=== PATIENT | male | born 1980 | race Caucasian/White ===

== ENCOUNTER 2016-10-13 03:45 | Emergency (ER) | payer OTHER ==
[2016-10-13] MEDS ORDERED: HYDROmorphone 2 MG/ML Syringe IVPUSH ONE (04:07)
[2016-10-13] MEDS ORDERED: Ondansetron 4 MG/2 ML SDV IVPUSH ONE (04:07)
--- NOTE | 2016-10-13 04:20 | EDM.PDOC ---
ED HPI GENERAL MEDICAL PROBLEM - General Chief Complaint: Back Pain or Injury Stated Complaint: BACK & LEG PAINS Time Seen by Provider: 10/13/16 03:56 - History of Present Illness INITIAL COMMENTS - FREE TEXT/NARRATIVE: HISTORY AND PHYSICAL: History of present illness: Patient is a 36-year-old white male presents today status post spinal fusion which she had L5-S1 fused this was done in [place] who presents now with back pain he states this is uncontrolled with his current pain medicine he has been urinating he's had no urinary retention or incontinence he denies any numbness or weakness he states this is strictly pain is been no fever chills nausea vomiting or other complaints he denies any new trauma although he did have a [address] Review of systems: As per history of present illness and below otherwise all systems reviewed and negative. Past medical history: As per history of present illness and as reviewed below otherwise noncontributory. Surgical history: As per history of present illness and as reviewed below otherwise noncontributory. Social history: No reported history of drug or alcohol abuse. Family history: As per history of present illness and as reviewed below otherwise noncontributory. Physical exam: HEENT: Atraumatic, normocephalic, pupils reactive, negative for conjunctival pallor or scleral icterus, mucous membranes moist, throat clear, neck supple, nontender, trachea midline. Lungs: Clear to auscultation, breath sounds equal bilaterally, chest nontender. Heart: S1S2, regular, negative for clicks, rubs, or JVD. Abdomen: Soft, nondistended, nontender. Negative for masses or hepatosplenomegaly. Negative for costovertebral tenderness. Pelvis: Stable nontender. Genitourinary: Deferred. Rectal: No perineal paresthesia rectal tone unremarkable. Extremities: Atraumatic, negative for cords or calf pain. Neurovascular unremarkable. Neuro: Awake, alert, oriented. Cranial nerves II through XII unremarkable. Cerebellum unremarkable. Motor and sensory unremarkable throughout. Exam nonfocal.surgical wound is without erythema discharge fluctuance warmth or induration Diagnostics: CBC CMP CT LS SPINE Therapeutics: DILAUDID 1 MG IV ZOFRAN 4 MG IV Impression: 1 S/P SPINAL FUSION WITH POST OPERATIVE PAIN #2 postoperative hematoma with cord compression per CT Definitive disposition and diagnosis as appropriate pending reevaluation and review of above. lower back Pain Score (Numeric/FACES): 10 - Related Data Allergies Allergy/AdvReac Type Severity Reaction Status Date / Time No Known Allergies Allergy Verified 05/06/15 09:43 Home Meds: Home Meds Acetaminophen 500 mg PO Q6HR 10/13/16 [History] Cetirizine [ZyrTEC] 10 mg PO DAILY 10/13/16 [History] Cholecalciferol (Vitamin D3) [Vitamin D] 5,000 unit PO DAILY 10/13/16 [History] Colestipol HCl [Colestipol] 2 gm PO DAILY 10/13/16 [History] Cyclobenzaprine HCl 10 mg PO Q8HR 10/13/16 [History] Docusate Sodium/Sennosides [Senna Plus] 1 tab PO DAILY 10/13/16 [History] Fish Oil/[place]-3 Fatty Acids [Fish Oil 1,000 MG] 10/13/16 [History] Polyethylene Glycol 3350 17 gm PO ASDIRECTED 10/13/16 [History] oxyCODONE HCl [Oxycodone HCl] 5 mg PO Q4HR 10/13/16 [History] Past Medical History HEENT History: Reports: None, Other (See Below) Other HEENT History: Lee's Esophagus Cardiovascular History: Reports: None Respiratory History: Reports: None Gastrointestinal History: Reports: GERD, Hiatal Hernia Genitourinary History: Reports: None Musculoskeletal History: Reports: None Other Musculoskeletal History: lower back fusion Neurological History: Reports: None Psychiatric History: Reports: None Endocrine/Metabolic History: Reports: None Hematologic History: Reports: None Immunologic History: Reports: None Oncologic (Cancer) History: Reports: None Dermatologic History: Reports: None - Infectious Disease History Infectious Disease History: Reports: Chicken Pox - Past Surgical History Head Surgeries/Procedures: Reports: None GI Surgical History: Reports: Appendectomy, Cholecystectomy, Esophageal Dilatation, Bonnie Fundoplication Social & Family History - Family History Family Medical History: Noncontributory - Tobacco Use Smoking Status *Q: Never Smoker Used Tobacco, but Quit: Yes Month Tobacco Last Used: 04/2008 Second Hand Smoke Exposure: No - Alcohol Use Days Per Week of Alcohol Use: 0 - Recreational Drug Use Recreational Drug Use: No - Living Situation & Occupation Living situation: Reports: Occupation: Employed ED ROS GENERAL - Review of Systems Review Of Systems: ROS reveals no pertinent complaints other than HPI. ED EXAM, GENERAL - Physical Exam Exam: See Below (See dictation) Course - Vital Signs Text/Narrative:: Case discussed with family including CT findings family requests return to neurosurgeon in [facility] discussed other options including [facility] family declines discussed case with Dr. Garcia neurosurgery who except patient will be transferred via air medical patient remains without any motor or sensory deficits or other neurological findings Last Recorded V/S: Last Vital Signs Temp 37.1 C 10/13/16 05:33 Pulse 118 H 10/13/16 05:33 Resp 20 10/13/16 05:33 BP 132/79 10/13/16 05:33 Pulse Ox 98 10/13/16 05:33 - Orders/Labs/Meds Orders: Active Orders 24 hr Category Date Time Status Lumbar Spine 2 or 3V [CR] Stat Exams 10/13/16 04:01 Taken Lumbar Spine wo Cont [CT] Stat Exams 10/13/16 04:31 Taken Labs: Laboratory Tests 10/13/16 10/13/16 Range/Units 04:20 04:20 WBC 12.03 H (4.0-11.0) K/uL RBC 4.28 L (4.50-5.90) M/uL Hgb 12.9 L (13.0-17.0) g/dL Hct 37.2 L (38.0-50.0) % MCV 86.9 (80.0-98.0) fL MCH 30.1 (27.0-32.0) pg MCHC 34.7 (31.0-37.0) g/dL RDW Std Deviation 38.4 (28.0-62.0) fl RDW Coeff of Aguilar 12 (11.0-15.0) % Plt Count 259 (150-400) K/uL MPV 9.80 (7.40-12.00) fL Add Manual Diff YES Neutrophils % (Manual) 74 (48.0-80.0) % Band Neutrophils % 3 % Lymphocytes % (Manual) 12 L (16.0-40.0) % Monocytes % (Manual) 10 (0.0-15.0) % Eosinophils % (Manual) 1 (0.0-7.0) % Nucleated RBC % 0.0 /100WBC Absolute Seg Neuts 8.9 Band Neutrophils # 0.4 Lymphocytes # (Manual) 1.4 Monocytes # (Manual) 1.2 Eosinophils # (Manual) 0.1 Nucleated RBCs # 0 K/uL Sodium 135 L (136-146) mmol/L Potassium 3.7 (3.5-5.1) mmol/L Chloride 102 (98-110) mmol/L Carbon Dioxide 21 (21-31) mmol/L BUN 19 (6.0-23.0) mg/dL Creatinine 1.0 (0.6-1.5) mg/dL Est Cr Clr Drug Dosing 99.75 mL/min Estimated GFR (MDRD) > 60.0 ml/min Glucose 102 (60-110) mg/dL Calcium 8.5 L (8.8-10.8) mg/dL Total Bilirubin 1.0 (0.1-1.5) mg/dL AST 72 H (5-40) IU/L ALT 88 H (8-54) IU/L Alkaline Phosphatase 59 (40-150) Total Protein 6.9 (6.0-8.0) g/dL Albumin 4.2 (3.5-5.0) g/dL Globulin 2.7 (2.0-3.5) g/dL Albumin/Globulin Ratio 1.6 (1.3-2.8) Meds: Medications Discontinued Medications Generic Name Dose Route Start Last Admin Trade Name Becky PRN Reason Stop Dose Admin Bacitracin 1 dose 10/13/16 04:59 10/13/16 05:04 Bacitracin Oint 1 Gm TOP 10/13/16 05:00 1 dose ONETIME ONE Administration Bacitracin Confirm 10/13/16 05:00 10/13/16 05:04 Bacitracin Oint 1 Gm Administered 10/13/16 05:01 Not Given Dose 2 dose .ROUTE .STK-MED ONE Hydromorphone HCl 1 mg 10/13/16 04:07 10/13/16 04:25 Dilaudid IVPUSH 10/13/16 04:08 1 mg ONETIME ONE Administration Hydromorphone HCl 1 mg 10/13/16 05:42 10/13/16 05:50 Dilaudid IVPUSH 10/13/16 05:43 1 mg ONETIME ONE Administration Methylprednisolone Sodium Succinate 125 mg 10/13/16 05:41 10/13/16 05:46 Solu-Medrol IVPUSH 10/13/16 05:42 125 mg ONETIME ONE Administration Ondansetron HCl 4 mg 10/13/16 04:07 10/13/16 04:20 Zofran IVPUSH 10/13/16 04:08 4 mg ONETIME ONE Administration Departure - Departure Time of Disposition: 06:16 Disposition: DC/Tfer to Other 70 Condition: Good Clinical Impression: Postoperative hematoma - Discharge Information Forms: ED Department Discharge - My Orders Last 24 Hours: My Active Orders 10/13/16 04:01 Lumbar Spine 2 or 3V [CR] Stat 10/13/16 04:31 Lumbar Spine wo Cont [CT] Stat - Assessment/Plan Last 24 Hours: My Active Orders 10/13/16 04:01 Lumbar Spine 2 or 3V [CR] Stat 10/13/16 04:31 Lumbar Spine wo Cont [CT] Stat
[2016-10-13] MEDS ORDERED: Bacitracin Oint 1 GM U/D Packet TOP ONE (04:59)
[2016-10-13] MEDS ORDERED: Bacitracin Oint 1 GM U/D Packet ONE (05:00)
[2016-10-13 05:16] LABS: CHLORIDE,CL 102 mmol/L (98-110); SODIUM,NA 135 mmol/L (136-146)
[2016-10-13] MEDS ORDERED: methylPREDNISolone Sodium Succinate 125 MG/2 ML SDV IVPUSH ONE (05:41)
[2016-10-13] MEDS ORDERED: HYDROmorphone 1 MG/ML Syringe IVPUSH ONE (05:42)
[2016-10-13 06:52] VITALS: BP 128/65
--- NOTE | 2016-10-14 12:07 | CR ---
EXAM DATE: 10/13/16 PATIENT'S AGE: 36 Patient: PALAK MAYBERRY Facility: [place], [place] Site . Site : 1980 Study: XRay Spine Lumbar [id number]/25/2017 4:20:45 AM Ordering Physician: Matti Harrington Final Report: HISTORY: Severe lower back pain. Lumbar fusion in the past week. Technique: Lumbar spine 3 views. Comparison: None. Findings: Counting reference: Lumbosacral junction. Five lumbar type vertebral bodies. Post fusion at L5-S1 1 with bilateral pedicle screws and rods. Intervertebral spacer in the L5-S1 disc space. Hardware appears intact. Vertebral body heights are maintained. Alignment is maintained. Mild disc space narrowing at L4-5. Postoperative soft tissue gas dorsally. Impression: Post L5-S1 fusion. No acute findings. Dictated by Hank Murdock MD @ Oct 13 2016 5:14AM (Electronic Signature) Report Signed by Proxy. LUZ
--- NOTE | 2016-10-14 12:09 | CT ---
EXAM DATE: 10/13/16 PATIENT'S AGE: 36 Patient: PALAK MAYBERRY Facility: [place], [place] Site . Site : 1980 Study: CT Spine Lumbar WO CONT [id number]/25/2017 5:00:05 AM Ordering Physician: Matti Harrington Final Report: Indication: History of spine surgery. Persistent back pain. Technique: Noncontrast CT of the lumbar spine was acquired in the usual fashion. No comparisons. Findings: Postoperative change about the anterior/posterior fusion endeavor involving the L5-S1 levels. There is soft tissue density material within the laminectomy defect likely representing presence of blood products such as a hematoma. This does result in narrowing of the central canal but is difficult to ascertain the degree. Endplate osteophyte and facet arthropathy results in moderate bilateral L5-S1 foraminal narrowing. Extensive gas is seen within the epidural space extending to the L3-4 level may represent postoperative change. Gas within the subcutaneous soft tissues of the lumbar spine likely representing postoperative change annual. Bony donor site from the right iliac crest. Remainder of the lumbar spine demonstrates normal overall stature and alignment. Impression: 1. Postoperative changes of anterior/posterior L5-S1 fusion. 2. Soft tissue density material dorsally at the L5-S1 laminectomy defect likely representing blood products. This does appear to narrow the central canal but is difficult to ascertain the degree of narrowing. 3. Moderate bilateral L5-S1 foraminal narrowing. 4. Gas within the epidural space of the lower lumbar spine as outlined above that may be postoperative in nature. Please note that all CT scans at this facility use dose modulation, iterative reconstruction, and/or weight-based dosing when appropriate to reduce radiation dose to as low as reasonably achievable. Dictated by Ricardo Irby MD @ Oct 13 2016 9:26AM (Electronic Signature) Report Signed by Proxy. LUZ
== END 2016-10-13 06:38 | disposition other institution (70) ==
LOC: MW.ED 03:45
DX: M96.840 Postprocedural hematoma of a musculoskeletal structure following a musculoskeletal system procedure (principal); K21.9 Gastro-esophageal reflux disease without esophagitis; Z79.899 Other long term (current) drug therapy; Z90.49 Acquired absence of other specified parts of digestive tract; Z98.890 Other specified postprocedural states
CPT/HCPCS: 72100; 72131; 80053; 85025; 96374; 96375; 96376; 99285; J1170; J2405; J2930; 99284

== ENCOUNTER 2017-03-25 16:50 | Emergency (ER) | payer OTHER ==
[2017-03-25] MEDS ORDERED: Sodium Chloride 0.9% 1,000 ML IV ONE (17:20)
[2017-03-25] MEDS ORDERED: fentaNYL 100 MCG/2 ML SDV IVPUSH ONE (17:23)
--- NOTE | 2017-03-25 17:25 | EDM.PDOC ---
ED HPI GENERAL MEDICAL PROBLEM - General Chief Complaint: Lower Extremity Injury/Pain Stated Complaint: PT HURT LT LEG Time Seen by Provider: 03/25/17 17:04 Source of Information: Reports: Patient History Limitations: Reports: No Limitations - History of Present Illness INITIAL COMMENTS - FREE TEXT/NARRATIVE: Presents reporting sudden onset of his left knee "giving away", falling forward onto his left knee and then his body "flopping backward". The patient reports the following history: Underwent L5-S1 PLIF with instrumentation on 10/10/[address] Garcia. He had a postop hematoma and evacuation which complicated his recovery. He continued to have some postoperative pain which was not controlled with oral opioids and muscle relaxants. Therefore he was sent to pain management. About one month ago he underwent epidural steroid injection with good results. Recently however his pain returned and on 03/19 he underwent trigger point injections in the quadratus lumborum, L5-S1 multifidus muscles. Now, the patient is complaining of severe spasmodic pain in the low back around the surgical site and in the left flank. His sweating and cannot get comfortable in any position. He does have baseline tingling and numbness in his legs bilateral. No loss of bowel or bladder function and good anal sensation and squeeze. Lower Back Pain Score (Numeric/FACES): 8 - Related Data Allergies Allergy/AdvReac Type Severity Reaction Status Date / Time No Known Allergies Allergy Verified 03/25/17 16:57 Home Meds: Home Meds Acetaminophen 500 mg PO Q6HR 10/13/16 [History] Cetirizine [ZyrTEC] 10 mg PO DAILY 10/13/16 [History] Cholecalciferol (Vitamin D3) [Vitamin D] 5,000 unit PO DAILY 10/13/16 [History] Colestipol HCl [Colestipol] 2 gm PO DAILY 10/13/16 [History] Cyclobenzaprine HCl 10 mg PO Q8HR 10/13/16 [History] Docusate Sodium/Sennosides [Senna Plus] 1 tab PO DAILY 10/13/16 [History] Fish Oil/[place]-3 Fatty Acids [Fish Oil 1,000 MG] 1 gm PO DAILY 10/13/16 [History ] Polyethylene Glycol 3350 17 gm PO ASDIRECTED 10/13/16 [History] oxyCODONE HCl [Oxycodone HCl] 5 mg PO Q4HR 10/13/16 [History] Ketamine [Ketalar] 200 mg DEVONTE DAILY PRN 03/25/17 [History] Past Medical History HEENT History: Reports: None, Other (See Below) Other HEENT History: Lee's Esophagus Cardiovascular History: Reports: None Respiratory History: Reports: None Gastrointestinal History: Reports: GERD, Hiatal Hernia Genitourinary History: Reports: None Musculoskeletal History: Reports: None Other Musculoskeletal History: lower back fusion Neurological History: Reports: None Psychiatric History: Reports: None Endocrine/Metabolic History: Reports: None Hematologic History: Reports: None Immunologic History: Reports: None Oncologic (Cancer) History: Reports: None Dermatologic History: Reports: None - Infectious Disease History Infectious Disease History: Reports: Chicken Pox - Past Surgical History Head Surgeries/Procedures: Reports: None GI Surgical History: Reports: Appendectomy, Cholecystectomy, Esophageal Dilatation, Bonnie Fundoplication Social & Family History - Family History Family Medical History: Noncontributory - Tobacco Use Smoking Status *Q: Never Smoker Used Tobacco, but Quit: Yes Month Tobacco Last Used: 04/2008 Second Hand Smoke Exposure: No - Alcohol Use Days Per Week of Alcohol Use: 0 - Recreational Drug Use Recreational Drug Use: No - Living Situation & Occupation Living situation: Reports: Occupation: Employed Review of Systems - Review of Systems Review Of Systems: ROS reveals no pertinent complaints other than HPI. Neurological: Reports: Other (Tingling and numbness, mild in legs down to her feet which patient states is his baseline) ED EXAM, GENERAL - Physical Exam Exam: See Below Exam Limited By: No Limitations General Appearance: Moderate Distress (due to pain low back and flank) Ears: Normal External Exam Nose: Normal Inspection Throat/Mouth: Normal Inspection Head: Atraumatic, Normocephalic Neck: Normal Inspection Respiratory/Chest: No Respiratory Distress, Lungs Clear, Normal Breath Sounds Cardiovascular: Normal Peripheral Pulses, Regular Rate, Rhythm, No Edema, No Murmur Peripheral Pulses: 2+: Posterior Tibial (L), Posterior Tibial (R) GI/Abdominal: Normal Bowel Sounds, Soft Back Exam: Normal Inspection, Muscle Spasm (around surgical site and left flank) Extremities: Normal Inspection, Normal Range of Motion Neurological: Alert, Oriented, No Motor/Sensory Deficits Psychiatric: Tearful Course - Vital Signs Last Recorded V/S: Last Vital Signs Temp 37.2 C 03/25/17 17:00 Pulse 88 03/25/17 20:33 Resp 18 03/25/17 20:33 BP 121/77 03/25/17 20:33 Pulse Ox 98 03/25/17 20:33 - Orders/Labs/Meds Orders: Active Orders 24 hr Category Date Time Status Lumbar Spine wo Cont [CT] Stat Exams 03/25/17 18:32 Taken CMP [COMPREHENSIVE METABOLIC PN,CMP] [CHEM] Stat Lab 03/25/17 21:00 Ordered Sodium Chloride 0.9% [Normal Saline] 1,000 ml Med 03/25/17 17:20 Active IV STAT Medication Orders Sodium Chloride (Normal Saline) 1,000 mls @ 150 mls/hr IV STAT ONE Stop: 03/25/17 23:59 Last Admin: 03/25/17 17:44 Dose: 150 mls/hr Labs: Laboratory Tests 03/25/17 Range/Units 21:20 WBC 9.97 (4.0-11.0) K/uL RBC 4.91 (4.50-5.90) M/uL Hgb 15.1 (13.0-17.0) g/dL Hct 42.7 (38.0-50.0) % MCV 87.0 (80.0-98.0) fL MCH 30.8 (27.0-32.0) pg MCHC 35.4 (31.0-37.0) g/dL RDW Std Deviation 39.4 (28.0-62.0) fl RDW Coeff of Aguilar 12 (11.0-15.0) % Plt Count 271 (150-400) K/uL MPV 9.70 (7.40-12.00) fL Neut % (Auto) 63.1 (48.0-80.0) % Lymph % (Auto) 29.5 (16.0-40.0) % [place] % (Auto) 5.4 (0.0-15.0) % Eos % (Auto) 1.5 (0.0-7.0) % Baso % (Auto) 0.5 (0.0-1.5) % Neut # (Auto) 6.3 H (1.4-5.7) K/uL Lymph # (Auto) 2.9 H (0.6-2.4) K/uL [place] # (Auto) 0.5 (0.0-0.8) K/uL Eos # (Auto) 0.2 (0.0-0.7) K/uL Baso # (Auto) 0.1 (0.0-0.1) K/uL Nucleated RBC % 0.0 /100WBC Nucleated RBCs # 0 K/uL Meds: Medications Generic Name Dose Route Start Last Admin Trade Name Freq PRN Reason Stop Dose Admin Sodium Chloride 1,000 mls @ 150 mls/hr 03/25/17 17:20 03/25/17 17:44 Normal Saline IV 03/25/17 23:59 150 mls/hr STAT ONE Administration Discontinued Medications Generic Name Dose Route Start Last Admin Trade Name Freq PRN Reason Stop Dose Admin Cyclobenzaprine HCl 10 mg 03/25/17 21:08 03/25/17 21:18 Flexeril PO 03/25/17 21:09 10 mg ONETIME ONE Administration Diazepam 5 mg 03/25/17 17:21 03/25/17 17:49 Valium IVPUSH 03/25/17 17:22 5 mg ONETIME ONE Administration Diazepam 5 mg 03/25/17 20:11 03/25/17 20:31 Valium IVPUSH 03/25/17 20:12 5 mg ONETIME ONE Administration Fentanyl 50 mcg 03/25/17 17:23 03/25/17 17:44 Sublimaze IVPUSH 03/25/17 17:24 50 mcg ONETIME ONE Administration - Re-Assessments/Exams Free Text/Narrative Re-Assessment/Exam: 03/25/17 21:54 After 2 doses of 5 mg IV diazepam and 50 mics of fentanyl IV along with 10 mg of by mouth cyclobenzaprine, the patient states that he is over 50% better. He was given the option of being transferred to [place] for MRI, having his drive him to [place] for an MRI or following up with Dr. Montero in the morning as previously scheduled for definitive management. The CT scan did not adequately assess the patient's spine and intracanal soft tissue. The patient stated that he absolutely did not want to go to [facility] and that he felt he was feeling well enough to go home for the night and follow-up with Dr. Montero in the morning. Free Text/Narrative Re-Assessment/Exam: 03/25/17 22:03 Patient got up by side of bed, ambulated, dressed self. Feels much improved. Departure - Departure Time of Disposition: 22:00 Disposition: Home, Self-Care 01 Condition: Good Clinical Impression: Back muscle spasm - Discharge Information Referrals: PCP,None [Primary Care Provider] - [facility] [Outside] [facility] [Outside] Forms: ED Department Discharge Additional Instructions: 1. Ativan 1-2 tabs every 8 hours as needed for back spasm or 2. Flexeril 10mg every 8 hours as needed for back spasm 3. Follow up with Dr. Montero in the am as previously scheduled. 4. Warm or cool packs to low back whichever feels best. - My Orders Last 24 Hours: My Active Orders 03/25/17 17:20 Sodium Chloride 0.9% [Normal Saline] 1,000 ml IV STAT 03/25/17 18:32 Lumbar Spine wo Cont [CT] Stat 03/25/17 21:00 CMP [COMPREHENSIVE METABOLIC PN,CMP] [CHEM] Stat - Assessment/Plan Last 24 Hours: My Active Orders 03/25/17 17:20 Sodium Chloride 0.9% [Normal Saline] 1,000 ml IV STAT 03/25/17 18:32 Lumbar Spine wo Cont [CT] Stat 03/25/17 21:00 CMP [COMPREHENSIVE METABOLIC PN,CMP] [CHEM] Stat
[2017-03-25] MEDS ORDERED: Cyclobenzaprine 10 MG Tab PO ONE (21:08)
[2017-03-25 21:49] LABS: CHLORIDE,CL 110 mmol/L (98-110); SODIUM,NA 140 mmol/L (136-146)
[2017-03-25 22:39] VITALS: BP 123/72
--- NOTE | 2017-03-26 13:02 | CT ---
EXAM DATE: 03/25/17 PATIENT'S AGE: 37 Patient: LUIS MAYBERRY Facility: [place], [place] Site . Site : 1980 Study: CT Spine Lumbar WO CONT [id number] 7:04:09 PM Ordering Physician: Doctor Pat Final Report: INDICATION: Lower back pain radiating down right leg, right leg gave out yesterday. History of spinal fusion in September with complications. Technique: Multiaxial CT images of the lumbar spine were obtained without contrast. Coronal and sagittal reformats. Comparison: CT lumbar spine dated 10/13/2016. Findings: Redemonstrated are postsurgical changes consistent with posterior lumbar interbody fusion, laminectomy, and intervertebral cage placement at L5-S1. No CT evidence of hardware complication. Lumbar lordosis is preserved. There is similar disc height loss most prominent at L5-S1. There is possible fusion of the left facet joint at L5-S1. Vertebral body heights are maintained. No evidence of fracture, dislocation or subluxation. Mild bilateral neural foramen narrowing at L5-S1 is improved. There is a bony donor site from the right iliac crest. There is a disc bulge at L3-4 without significant spinal canal stenosis. The thecal sac and paraspinal soft tissues at L4-5 and L5-S1 are poorly visualized due to streak artifact from metallic hardware. No gas collections to suggest abscess. Impression : 1. Postsurgical changes are consistent with posterior lumbar interbody fusion, laminectomy, and intervertebral cage placement at L5-S1. Probable effusion of the left L4-5 facet. There is improved stenosis of the bilateral L5-S1 neural foramen. 2. The thecal sac and paraspinal soft tissues at L4-5 and L5-S1 are poorly visualized due to streak artifact from metallic hardware. No gas collections to suggest abscess. Please note that all CT scans at this facility use dose modulation, iterative reconstruction, and/or weight-based dosing when appropriate to reduce radiation dose to as low as reasonably achievable. Dictated by Luis lEder MD @ Mar 26 2017 8:24AM (Electronic Signature) Report Signed by Proxy. LUZ
== END 2017-03-25 22:36 | disposition home or self-care (01) ==
LOC: MW.ED 16:50
DX: M62.830 Muscle spasm of back (principal); Z79.899 Other long term (current) drug therapy
CPT/HCPCS: 36415; 72131; 80053; 85025; 96361; 96374; 96375; 96376; 99284; A9270; J3010; J3360; J7040

== ENCOUNTER 2018-01-22 11:37 | Day surgery (SDC) | payer OTHER ==
[2018-01-22] MEDS ORDERED: Ropivacaine 0.5% 5 MG/ML 30 ML SDV ONE (11:53)
[2018-01-22] MEDS ORDERED: Lidocaine 2% 5 ML SDV ONE (11:53)
[2018-01-22] MEDS ORDERED: Lidocaine 1% 0 ML ONE (11:53)
[2018-01-22] MEDS ORDERED: Betamethasone Acetate/Betamethasone Sod Phosphate 30 MG/5 ML MDV ONE (11:53)
[2018-01-22] MEDS ORDERED: Iopamidol 408 MG/ML 50 ML SDV ONE (11:54)
--- NOTE | 2018-01-22 15:21 | OR ---
SURGEON: Radha Gilman D.O. DATE OF PROCEDURE: 01/22/2018 OR STAFF PRESENT: 1. Jaylene Abrams RN. 2. Nohemy Ramos RN. 3. RT Wagner. WOUND CLASS: I. PREOPERATIVE DIAGNOSES: 1. Failed back surgery syndrome. 2. Lumbar radiculopathy. 3. Chronic neuropathic pain. POSTOPERATIVE DIAGNOSES: 1. Failed back surgery syndrome. 2. Lumbar radiculopathy. 3. Chronic neuropathic pain. PROCEDURES PERFORMED: 1. Caudal epidural steroid injection. 2. Fluoroscopic guidance for needle placement. 3. Local with oral valium for sedation. SCREENING QUESTIONS: The patient answered "no" to all of the following questions: 1. Are you allergic to latex? 2. Do you have a bleeding disorder? 3. Do you have any current local or systemic infections? 4. Are you taking any anti-inflammatories or blood thinners? 5. Do you have any joint replacements, heart valve replacements, or a pacemaker? DESCRIPTION OF PROCEDURE: The patient had the procedure thoroughly explained including all possible risks, benefits and alternatives. Consent was signed in my clinic indicating understanding and willingness to proceed. The patient presented to [facility] [place] and was escorted to the dressing room to disrobe and change into a hospital gown. Preoperative vital signs were taken and stable. The patient reported that Valium was taken prior to the procedure. The patient was brought back to the procedure room and placed in the prone position on the procedure room table. A pillow was placed under the hips in order to flatten the lumbar lordosis. The back was prepped with ChloraPrep and sterilely draped. All personnel in the operating room were dressed in appropriate attire including surgical scrubs, head and shoe covers. This was to ensure sterility while in the treatment room. During the time fluoroscopy was in use, all personnel in the operating room wore lead gillette with thyroid collars. Sterile technique was used throughout the procedure. The patient was awake and conversant throughout the procedure. There was no evidence of infection at the site of needle insertion. Skeletal landmarks were identified under fluoroscopy for the lumbar epidural. Skin was anesthetized with 2% lidocaine with a sterile 27-gauge 1.5 inch needle. Then, a 20-gauge Tuohy epidural needle was placed in the epidural space with loss of resistance technique under fluoroscopic guidance. No heme, cerebrospinal fluid, or paresthesias were noted. Isovue-200 contrast dye was injected in 0.2 cubic centimeter increments and seen to outline the epidural space in both AP and lateral views. There was no intravascular flow pattern observed under live fluoroscopy. Then, 12 milligrams of Celestone was slowly injected after negative aspiration. The patient tolerated the procedure well. Vital signs were stable during and after the procedure. The staff escorted the patient to the recovery area and the patient was released in stable condition after a brief stay in the recovery room monitored by the nurse. The patient was given both oral and written discharge and follow up instructions with recommendation to follow up given for 2-3 weeks. The patient voiced understanding including understanding of those signs and symptoms that would require emergency care. The patient knows how to contact the office if there are any additional problems or questions in the meantime. PREOPERATIVE PAIN: 4 to 5/10. POSTOPERATIVE PAIN: 4 to 5/10. FOLLOWUP: Follow up in the Pain Clinic in 3 weeks. EYAL / FRANCISCO /[id number]
== END 2018-01-22 13:35 | disposition home or self-care (01) ==
LOC: MW.SDS 11:37
PROVIDERS: ATTEND Anesthesiology
DX: G89.4 Chronic pain syndrome (principal); M54.5 Low back pain; M54.17 Radiculopathy, lumbosacral region; M96.1 Postlaminectomy syndrome, not elsewhere classified; M79.18 Myalgia, other site; Z87.891 Personal history of nicotine dependence; Z98.1 Arthrodesis status
CPT/HCPCS: 62323; J0702; J2795; Q9966

== ENCOUNTER 2019-03-21 07:41 | Emergency (ER) | payer OTHER ==
[2019-03-21] MEDS ORDERED: Pantoprazole 80 MG in Sodium Chloride 0.9% 10 ML IV ONE (07:52)
[2019-03-21] MEDS ORDERED: Ketorolac 30 MG/ML SDV IVPUSH ONE (07:52)
[2019-03-21] MEDS ORDERED: Water For Injection, Sterile 50 ML SDV INJECT ONE (07:53)
[2019-03-21] MEDS ORDERED: Alum Hydrox/Mag Hydrox/Simeth 15 ML, Metoclopramide 5 MG, Lidocaine 2% 5 ML PO ONE ×3 (07:54)
--- NOTE | 2019-03-21 07:56 | EDM.PDOC ---
ED HPI GENERAL MEDICAL PROBLEM - General Chief Complaint: Chest Pain Stated Complaint: SOB Time Seen by Provider: 03/21/19 07:42 - History of Present Illness INITIAL COMMENTS - FREE TEXT/NARRATIVE: HISTORY AND PHYSICAL: History of present illness: Patient 39-year-old white male presents with a concern of esophageal spasm patient's head prior episodes and has had a Bonnie fundoplication. He denies trauma or other concern he states his lips of the past required IV medication. Review of systems: As per history of present illness and below otherwise all systems reviewed and negative. Past medical history: As per history of present illness and as reviewed below otherwise noncontributory. Surgical history: As per history of present illness and as reviewed below otherwise noncontributory. Social history: No reported history of drug or alcohol abuse. Family history: As per history of present illness and as reviewed below otherwise noncontributory. Physical exam: HEENT: Atraumatic, normocephalic, pupils reactive, negative for conjunctival pallor or scleral icterus, mucous membranes moist, throat clear, neck supple, nontender, trachea midline. Lungs: Clear to auscultation, breath sounds equal bilaterally, chest nontender. Heart: S1S2, regular, negative for clicks, rubs, or JVD. Abdomen: Soft, nondistended, nontender. Negative for masses or hepatosplenomegaly. Negative for costovertebral tenderness. Pelvis: Stable nontender. Genitourinary: Deferred. Rectal: Deferred. Extremities: Atraumatic, negative for cords or calf pain. Neurovascular unremarkable. Neuro: Awake, alert, oriented. Cranial nerves II through XII unremarkable. Cerebellum unremarkable. Motor and sensory unremarkable throughout. Exam nonfocal. Diagnostics: Chest x-ray EKG Therapeutics: Toradol 30 mg IV Protonix 80 mg IV GI cocktail Impression: #1 epigastric abdominal pain #2 history of esophagitis #3 history of Bonnie fundoplication Definitive disposition and diagnosis as appropriate pending reevaluation and review of above. Chest Pain Pain Score (Numeric/FACES): 8 - Related Data Allergies Allergy/AdvReac Type Severity Reaction Status Date / Time No Known Allergies Allergy Verified 03/21/19 07:46 Home Meds: Home Meds Acetaminophen 500 mg PO Q6HR 10/13/16 [History] Cetirizine [ZyrTEC] 10 mg PO DAILY 10/13/16 [History] Cholecalciferol (Vitamin D3) [Vitamin D] 5,000 unit PO DAILY 10/13/16 [History] Colestipol HCl [Colestipol] 2 gm PO DAILY 10/13/16 [History] Cyclobenzaprine HCl 10 mg PO Q8HR 10/13/16 [History] Docusate Sodium/Sennosides [Senna Plus] 1 tab PO DAILY 10/13/16 [History] Fish Oil/[place]-3 Fatty Acids [Fish Oil 1,000 MG] 1 gm PO DAILY 10/13/16 [History ] Polyethylene Glycol 3350 17 gm PO ASDIRECTED 10/13/16 [History] oxyCODONE HCl [Oxycodone HCl] 5 mg PO Q4HR 10/13/16 [History] Ketamine [Ketalar] 200 mg DEVONTE DAILY PRN 03/25/17 [History] Past Medical History HEENT History: Reports: None, Other (See Below) Other HEENT History: Lee's Esophagus Cardiovascular History: Reports: None Respiratory History: Reports: None Gastrointestinal History: Reports: GERD, Hiatal Hernia Genitourinary History: Reports: None Musculoskeletal History: Reports: None Other Musculoskeletal History: lower back fusion Neurological History: Reports: None Psychiatric History: Reports: None Endocrine/Metabolic History: Reports: None Hematologic History: Reports: None Immunologic History: Reports: None Oncologic (Cancer) History: Reports: None Dermatologic History: Reports: None - Infectious Disease History Infectious Disease History: Reports: Chicken Pox - Past Surgical History Head Surgeries/Procedures: Reports: None GI Surgical History: Reports: Appendectomy, Cholecystectomy, Esophageal Dilatation, Bonnie Fundoplication Social & Family History - Family History Family Medical History: Noncontributory - Tobacco Use Smoking Status *Q: Never Smoker - Caffeine Use Caffeine Use: Reports: Coffee - Recreational Drug Use Recreational Drug Use: No - Living Situation & Occupation Living situation: Reports: Occupation: Employed ED ROS GENERAL - Review of Systems Review Of Systems: Comprehensive ROS is negative, except as noted in HPI. ED EXAM, GENERAL - Physical Exam Exam: See Below (See dictation) Course - Vital Signs Last Recorded V/S: Last Vital Signs Temp 36.7 C 03/21/19 07:46 Pulse 95 03/21/19 07:46 Resp 19 03/21/19 07:46 BP 113/85 03/21/19 07:46 Pulse Ox 97 03/21/19 07:46 - Orders/Labs/Meds Orders: Active Orders 24 hr Category Date Time Status EKG Documentation Completion [RC] STAT Care 03/21/19 07:52 Active Meds: Medications Discontinued Medications Generic Name Dose Route Start Last Admin Trade Name Becky PRN Reason Stop Dose Admin Al Hydroxide/Mg Hydroxide 15 0 ml 03/21/19 07:54 03/21/19 08:04 ml/ Metoclopramide HCl 5 mg/ PO 03/21/19 07:55 1 each Lidocaine HCl 5 ml ONETIME ONE Administration Hydromorphone HCl 1 mg 03/21/19 09:41 03/21/19 09:50 Dilaudid IVPUSH 03/21/19 09:42 1 mg ONETIME ONE Administration Pantoprazole Sodium 80 mg/ 10 mls @ 300 mls/hr 03/21/19 07:52 03/21/19 08:04 Sodium Chloride IV 03/21/19 07:53 300 mls/hr NOW ONE Administration Ketorolac Tromethamine 30 mg 03/21/19 07:52 03/21/19 08:04 Toradol IVPUSH 03/21/19 07:53 30 mg ONETIME ONE Administration Lorazepam 1 mg 03/21/19 09:42 03/21/19 09:50 Ativan IVPUSH 03/21/19 09:43 1 mg ONETIME ONE Administration Ondansetron HCl 4 mg 03/21/19 09:42 03/21/19 09:50 Zofran IVPUSH 03/21/19 09:43 4 mg ONETIME ONE Administration Sterile Water 20 ml 03/21/19 07:53 03/21/19 08:04 Sterile Water For Injection INJECT 03/21/19 07:54 20 ml ONETIME ONE Administration Departure - Departure Time of Disposition: 10:09 Disposition: Home, Self-Care 01 Condition: Good Clinical Impression: Epigastric pain, Diffuse esophageal spasm - Discharge Information Referrals: PCP,None [Primary Care Provider] - Forms: ED Department Discharge Additional Instructions: The following information is given to patients seen in the emergency department who are being discharged to home. This information is to outline your options for follow-up care. We provide all patients seen in our emergency department with a follow-up referral. The need for follow-up, as well as the timing and circumstances, are variable depending upon the specifics of your emergency department visit. If you don't have a primary care physician on staff, we will provide you with a referral. We always advise you to contact your personal physician following an emergency department visit to inform them of the circumstance of the visit and for follow-up with them and/or the need for any referrals to a consulting specialist. The emergency department will also refer you to a specialist when appropriate. This referral assures that you have the opportunity for followup care with a specialist. All of these measure are taken in an effort to provide you with optimal care, which includes your followup. Under all circumstances we always encourage you to contact your private physician who remains a resource for coordinating your care. When calling for followup care, please make the office aware that this follow-up is from your recent emergency room visit. If for any reason you are refused follow-up, please contact the [facility] emergency department at and asked to speak to the emergency department charge nurse. Follow-up primary medical doctor return as needed as discussed - My Orders Last 24 Hours: My Active Orders 03/21/19 07:52 EKG Documentation Completion [RC] STAT - Assessment/Plan Last 24 Hours: My Active Orders 03/21/19 07:52 EKG Documentation Completion [RC] STAT
--- NOTE | 2019-03-21 08:25 | CR ---
Indication: Chest pain that radiates into the neck. Technique: A single AP portable view of the chest was obtained. Comparison: February 16, 2018. Findings: The heart is normal in size. The lungs are clear. No infiltrate, pleural effusion, pneumothorax identified. Impression: No acute cardiopulmonary process Dictated by Oma Styles MD @ Mar 21 2019 8:24AM Signed by Dr. Oma Styles @ Mar 21 2019 8:25AM
[2019-03-21] MEDS ORDERED: HYDROmorphone 1 MG/ML Syringe IVPUSH ONE (09:41)
[2019-03-21] MEDS ORDERED: Ondansetron 4 MG/2 ML SDV IVPUSH ONE (09:42)
[2019-03-21] MEDS ORDERED: LORazepam 2 MG/ML SDV IVPUSH ONE (09:42)
[2019-03-21 10:17] VITALS: BP 109/76; PULSE 75
== END 2019-03-21 10:28 | disposition home or self-care (01) ==
LOC: MW.ED 07:41
DX: K22.4 Dyskinesia of esophagus (principal); Z79.899 Other long term (current) drug therapy
CPT/HCPCS: 71045; 93005; 96374; 96375; 99285; A9270; C9113; J1170; J1885; J2060; J2405; J7050

== ENCOUNTER 2020-02-24 12:01 | Day surgery (SDC) | payer OTHER ==
[~2020-02-24 12:01] MED LIST: Lidocaine 2% 5 ML SDV INJECT ONE
[2020-02-24] MEDS ORDERED: Iopamidol 200-M 10 ML vial ITHECAL ONE (14:00)
[2020-02-24] MEDS ORDERED: Betamethasone Acetate/Betamethasone Sod Phosphate 30 MG/5 ML MDV EPIDUR ONE (14:00)
[2020-02-24] MEDS ORDERED: Ropivacaine 0.5% 5 MG/ML 30 ML SDV INJECT ONE (14:00)
--- NOTE | 2020-02-24 16:32 | OR ---
SURGEON: Radha Gilman D.O. DATE OF PROCEDURE: 02/24/2020 PRIMARY SURGEON: Radha Gilman DO ASSISTANTS: OR staff present: 1. Jaylene Alejandro RN. 2. Perla Kumar RN. 3. Dominic Rock RT. WOUND CLASS: I. PREOPERATIVE DIAGNOSES: 1. Failed back surgery syndrome. 2. Chronic low back pain with left lower extremity L5-S1 radiculopathy. 3. Lumbar degenerative disk disease, L4-5 and L5-S1. 4. Lumbar spondylosis. POSTOPERATIVE DIAGNOSES: 1. Failed back surgery syndrome. 2. Chronic low back pain with left lower extremity L5-S1 radiculopathy. 3. Lumbar degenerative disk disease, L4-5 and L5-S1. 4. Lumbar spondylosis. PROCEDURES PERFORMED: 1. Left transforaminal epidural steroid injection at S1. 2. Fluoroscopic guidance for needle placement. 3. Local with oral Valium for sedation. SCREENING QUESTIONS: The patient answered "no" to all of the following questions: 1. Are you allergic to iodine, Betadine or latex? 2. Do you have a bleeding disorder? 3. Do you have any joint replacements, heart valve replacements, or a pacemaker? 4. Are you allergic to anti-inflammatories or blood thinners? 5. Do you have any current local or systemic infections? MEDICAL NECESSITY: This is a patient with a history of chronic low back pain and lower extremity radicular pain in the above dermatomal pattern that comes in for the above diagnostic and therapeutic procedure. Pertinent positives and negatives for this suspected disease process along with the diagnostic findings and testing are in the patient's history and physical exam. The most salient feature includes radicular pain in the above dermatomal pattern. The patient had failed attempts at conservative therapy including physical therapy, nonsteroidal anti- inflammatory drugs, and other medications. No contraindications to perform this procedure including medical, no bleeding disorders or infections, no psychological, no antisocial personality disorder or active addiction disorder. There are no work-related issues, and, in general, the patient does not have any history of multiple prior interventions, surgeries or nerve blocks which have failed to return the patient to function. The patient's other symptoms to be treated include numbness, paresthesia, dysesthesia or hypoesthesia referred into the left lower extremity or any weakness in the involved myotome. This procedure is being performed in accordance with national guidelines as written by the [employer] (PATEL). DESCRIPTION OF PROCEDURE: The patient had the procedure thoroughly explained including risks, benefits and alternatives. Consent was signed in my clinic indicating understanding and willingness to proceed. The patient presented to [facility] [place] where the patient was escorted to the dressing room to disrobe and change into a hospital gown. Preoperative vital signs were taken and stable. The patient reported that Valium was taken prior to the procedure. The patient was brought to the procedure room and placed in the prone position on the table. A pillow was placed under the abdomen in order to flatten the lumbar lordosis. The back was prepped with ChloraPrep and sterilely draped. All personnel in the operating room were dressed in appropriate attire including surgical scrubs, head and shoe covers. This was to ensure sterility while in the treatment room. During the time fluoroscopy was in use, all personnel in the operating room wore lead gillette with thyroid collars. Sterile technique was used during the procedure. The fluoroscope was placed for the left S1 transforaminal epidural steroid injection. There was no sign of infection at the skin site for needle insertion. The skin was anesthetized with 2% lidocaine with a 27 gauge 1-1/2 inch needle. Then, a 22 gauge 3-1/2 inch spinal needle, advanced to the left S1. Under direct fluoroscopic guidance needle position was verified in three views; AP, oblique and lateral, with 0.2 cubic centimeters increments of Isovue- 200 dye. No intravascular flow pattern was observed under live fluoroscopy. Then 12 milligrams of Celestone was slowly injected after negative aspiration of heme, cerebrospinal fluid and no paresthesias were noted. The needle was cleared prior to removal from the skin. No adverse reactions were noted. The patient was brought to the recovery room awake and in good condition by my staff. The patient was monitored and discharge instructions were given after a brief stay in the recovery area. Both oral and written discharge and follow up instructions were given. The patient will follow up in the clinic in 3-4 weeks post procedure to evaluate the efficacy. The patient verbalized understanding including understanding of those signs and symptoms that would require emergency care and knows how to contact the office if there are any problems or questions in the meantime. PREOPERATIVE PAIN: 10. POSTOPERATIVE PAIN: 04/30. FOLLOWUP: In the Pain Clinic in 3 weeks. EYAL / FRANCISCO /[id number]
== END 2020-02-24 13:48 ==
LOC: MW.SDS 12:01
PROVIDERS: ATTEND Anesthesiology
DX: G89.29 Other chronic pain (principal); M51.17 Intervertebral disc disorders with radiculopathy, lumbosacral region; M51.16 Intervertebral disc disorders with radiculopathy, lumbar region; M47.26 Other spondylosis with radiculopathy, lumbar region; M96.1 Postlaminectomy syndrome, not elsewhere classified; Z88.5 Allergy status to narcotic agent; Z79.899 Other long term (current) drug therapy; Z98.890 Other specified postprocedural states; Z87.891 Personal history of nicotine dependence; Z87.828 Personal history of other (healed) physical injury and trauma

== ENCOUNTER 2020-03-14 12:01 | Day surgery (SDC) | payer OTHER ==
[2020-03-14] MEDS ORDERED: Iopamidol 200-M 10 ML vial ITHECAL ONE (13:30)
[2020-03-14] MEDS ORDERED: Ropivacaine 0.5% 5 MG/ML 30 ML SDV INJECT ONE (13:30)
[2020-03-14] MEDS ORDERED: Lidocaine 2% 5 ML SDV INJECT ONE (13:30)
[2020-03-14] MEDS ORDERED: Betamethasone Acetate/Betamethasone Sod Phosphate 30 MG/5 ML MDV EPIDUR ONE (13:30)
--- NOTE | 2020-03-14 15:25 | OR ---
SURGEON: Radha Gilman D.O. DATE OF PROCEDURE: 03/14/2020 PRIMARY SURGEON: Radha Gilman DO ASSISTANTS: OR staff present: 1. Perla Kumar RN. 2. Carlos Pettit RN. 3. Dominic Rock, RT. PREOPERATIVE DIAGNOSES: 1. Failed back surgery syndrome. 2. Left lumbosacral radiculopathy. POSTOPERATIVE DIAGNOSES: 1. Failed back surgery syndrome. 2. Left lumbosacral radiculopathy. PROCEDURES PERFORMED: 1. Left S1 transforaminal epidural steroid injection. 2. Fluoroscopic guidance for needle placement. 3. Local with oral Valium for sedation. SCREENING QUESTIONS: The patient answered "no" to all of the following questions: 1. Are you allergic to iodine, Betadine or latex? 2. Do you have a bleeding disorder? 3. Do you have any joint replacements, heart valve replacements, or a pacemaker? 4. Are you allergic to anti-inflammatories or blood thinners? 5. Do you have any current local or systemic infections? DESCRIPTION OF PROCEDURE: The patient had the procedure thoroughly explained including risks, benefits and alternatives. Consent was signed in my clinic indicating understanding and willingness to proceed. The patient presented to [facility] [place] where the patient was escorted to the dressing room to disrobe and change into a hospital gown. Preoperative vital signs were taken and stable. The patient reported that Valium was taken prior to the procedure. The patient was brought to the procedure room and placed in the prone position on the table. A pillow was placed under the abdomen in order to flatten the lumbar lordosis. The back was prepped with ChloraPrep and sterilely draped. All personnel in the operating room were dressed in appropriate attire including surgical scrubs, head and shoe covers. This was to ensure sterility while in the treatment room. During the time fluoroscopy was in use, all personnel in the operating room wore lead gillette with thyroid collars. Sterile technique was used during the procedure. The fluoroscope was placed for the left S1 transforaminal epidural steroid injection. There was no sign of infection at the skin site for needle insertion. The skin was anesthetized with 2% lidocaine with a 27 gauge 1-1/2 inch needle. Then, a 22 gauge 3-1/2 inch spinal needle, advanced to the left S1 foramen. Under direct fluoroscopic guidance needle position was verified in three views; AP, oblique and lateral, with 0.2 cubic centimeters increments of Isovue- 200 dye. No intravascular flow pattern was observed under live fluoroscopy. Then 12 milligrams of Celestone and local was slowly injected after negative aspiration of heme, cerebrospinal fluid and no paresthesias were noted. The needle was cleared prior to removal from the skin. No adverse reactions were noted during the epidural. On removal of the needle he had low back muscle spasms in the lower lumbosacral area resolved with pressure applied after a few minutes. The patient was brought to the recovery room awake and in good condition by my staff. The patient was monitored and discharge instructions were given after a brief stay in the recovery area. Both oral and written discharge and follow up instructions were given. The patient will follow up in the clinic in 3-4 weeks post procedure to evaluate the efficacy. The patient verbalized understanding including understanding of those signs and symptoms that would require emergency care and knows how to contact the office if there are any problems or questions in the meantime. PREOPERATIVE PAIN: 5/10. POSTOPERATIVE PAIN: 3/10. FOLLOWUP: In the Pain Clinic in 3 weeks. EYAL / FRANCISCO /[id number] LUZ
== END 2020-03-14 13:58 ==
LOC: MW.SDS 12:01
PROVIDERS: ATTEND Anesthesiology
DX: M96.1 Postlaminectomy syndrome, not elsewhere classified (principal); M51.17 Intervertebral disc disorders with radiculopathy, lumbosacral region; M51.16 Intervertebral disc disorders with radiculopathy, lumbar region; M99.73 Connective tissue and disc stenosis of intervertebral foramina of lumbar region; M47.26 Other spondylosis with radiculopathy, lumbar region; M79.18 Myalgia, other site; F17.210 Nicotine dependence, cigarettes, uncomplicated; Z79.899 Other long term (current) drug therapy
CPT/HCPCS: 64483; J0702; J2001; J2795; Q9966

== ENCOUNTER 2020-08-17 12:17 | Day surgery (SDC) | payer OTHER ==
[2020-08-17] MEDS ORDERED: Ropivacaine 0.5% 5 MG/ML 30 ML SDV INJECT ONE (13:30)
[2020-08-17] MEDS ORDERED: Betamethasone Acetate/Betamethasone Sod Phosphate 30 MG/5 ML MDV EPIDUR ONE (13:30)
[2020-08-17] MEDS ORDERED: Iopamidol 200-M 10 ML vial ITHECAL ONE (13:30)
[2020-08-17] MEDS ORDERED: Lidocaine 2% 5 ML SDV INJECT ONE (13:30)
--- NOTE | 2020-08-17 20:10 | OR ---
SURGEON: Radha Gilman D.O. DATE OF PROCEDURE: 08/17/2020 PRIMARY SURGEON: Radha Gilman D.O. PIPE COVERER HELPER: OR staff present: 1. Facundo Marcos RN. 2. Elliot Storm RN. 3. Facundo Pool RT. WOUND CLASS: I. PREOPERATIVE DIAGNOSES: 1. Failed back surgery syndrome. 2. Left L5-S1 radiculopathy. 3. Chronic pain syndrome. POSTOPERATIVE DIAGNOSES: 1. Failed back surgery syndrome. 2. Left L5-S1 radiculopathy. 3. Chronic pain syndrome. PROCEDURES PERFORMED: 1. Left S1 transforaminal epidural steroid injection. 2. Fluoroscopic guidance for needle placement. 3. Local with oral Valium for sedation. SCREENING QUESTIONS: The patient answered "no" to all of the following questions: 1. Are you allergic to iodine, Betadine or latex? 2. Do you have a bleeding disorder? 3. Do you have any joint replacements, heart valve replacements, or a pacemaker? 4. Are you allergic to anti-inflammatories or blood thinners? 5. Do you have any current local or systemic infections? DESCRIPTION OF PROCEDURE: The patient had the procedure thoroughly explained including risks, benefits and alternatives. Consent was signed in my clinic indicating understanding and willingness to proceed. The patient presented to [facility] [place] where the patient was escorted to the dressing room to disrobe and change into a hospital gown. Preoperative vital signs were taken and stable. The patient reported that Valium was taken prior to the procedure. The patient was brought to the procedure room and placed in the prone position on the table. A pillow was placed under the abdomen in order to flatten the lumbar lordosis. The back was prepped with ChloraPrep and sterilely draped. All personnel in the operating room were dressed in appropriate attire including surgical scrubs, head and shoe covers. This was to ensure sterility while in the treatment room. During the time fluoroscopy was in use, all personnel in the operating room wore lead gillette with thyroid collars. Sterile technique was used during the procedure. The fluoroscope was placed for the left S1 transforaminal epidural steroid injection. There was no sign of infection at the skin site for needle insertion. The skin was anesthetized with 2% lidocaine with a 27 gauge 1-1/2 inch needle. Then a 22 gauge 3-1/2 inch spinal needle, advanced to the left S1. Under direct fluoroscopic guidance needle position was verified in three views; AP, oblique and lateral, with 0.2 cubic centimeters increments of Isovue-200 dye. No intravascular flow pattern was observed under live fluoroscopy. Then 12 milligrams of Celestone was slowly injected after negative aspiration of heme, cerebrospinal fluid and no paresthesias were noted. The needle was cleared prior to removal from the skin. No adverse reactions were noted. The patient was brought to the recovery room awake and in good condition by my staff. The patient was monitored and discharge instructions were given after a brief stay in the recovery area. Both oral and written discharge and follow up instructions were given. The patient will follow up in the clinic in 3-4 weeks post procedure to evaluate the efficacy. The patient verbalized understanding including understanding of those signs and symptoms that would require emergency care and knows how to contact the office if there are any problems or questions in the meantime. PREOPERATIVE PAIN: 5/10. POSTOPERATIVE PAIN: 0/10. PLAN: Follow up in the pain clinic in 3 weeks. EYAL / FRANCISCO /[id number] LUZ
== END 2020-08-17 13:52 ==
LOC: MW.SDS 12:17
PROVIDERS: ATTEND Anesthesiology
DX: G89.4 Chronic pain syndrome (principal); M51.16 Intervertebral disc disorders with radiculopathy, lumbar region; M96.1 Postlaminectomy syndrome, not elsewhere classified; M79.18 Myalgia, other site; Z88.5 Allergy status to narcotic agent; Z79.899 Other long term (current) drug therapy; Z98.890 Other specified postprocedural states; Z87.891 Personal history of nicotine dependence; Z98.1 Arthrodesis status
CPT/HCPCS: 64483; J0702; J2795; Q9966

== ENCOUNTER 2020-12-24 06:17 | Emergency (ER) | payer OTHER ==
--- NOTE | 2020-12-24 07:13 | EDM.PDOC ---
ED HPI GENERAL MEDICAL PROBLEM - General Chief Complaint: Abdominal Pain Stated Complaint: RIGHT SIDE ABDOMINAL PAIN Time Seen by Provider: 12/24/20 06:59 Source of Information: Reports: Patient History Limitations: Reports: No Limitations - History of Present Illness INITIAL COMMENTS - FREE TEXT/NARRATIVE: 40-year-old male past medical history chronic back pain, past surgical history appendectomy and cholecystectomy presents for right lower quadrant abdominal pain x2 days worsening. Patient notes that it is difficult to find a position of comfort. He notes that the pain is worse when he is pressing on his abdomen. He denies any associated nausea or vomiting. He has been having normal bowel movements with last bowel movement yesterday. He denies any urinary symptoms of dysuria, urinary frequency, hematuria. Pain seems to be worse when moving around, running, walking. It is better when he lays on his left side. right lower abdomen Pain Score (Numeric/FACES): 8 - Related Data Allergies Allergy/AdvReac Type Severity Reaction Status Date / Time acetaminophen Allergy Abdominal Verified 12/24/20 07:13 Pain hydrocodone Allergy Abdominal Verified 12/24/20 07:13 Pain Home Meds: Home Meds Acetaminophen 500 mg PO Q6HR 10/13/16 [History] Cetirizine [ZyrTEC] 10 mg PO DAILY 10/13/16 [History] Cholecalciferol (Vitamin D3) [Vitamin D] 5,000 unit PO DAILY 10/13/16 [History] Colestipol HCl [Colestipol] 2 gm PO DAILY 10/13/16 [History] Fish Oil/[place]-3 Fatty Acids [Fish Oil 1,000 MG] 1 gm PO DAILY 10/13/16 [History] polyethylene glycoL 3350 [Polyethylene Glycol 3350] 17 gm PO ASDIRECTED 10/13/16 [History] Ketamine [Ketalar] 200 mg DEVONTE DAILY PRN 03/25/17 [History] Baclofen 1 tab PO BID 08/18/20 [History] Cetirizine HCl [Zyrtec] 1 tab PO DAILY 08/18/20 [History] Hydrocortisone Acetate 25 mg RC BID 7 Days #14 supp.rect 08/18/20 [Rx] Amoxicillin/Potassium Clav [Augmentin 875-125 Tablet] 1 each PO BID #14 tablet 12/24/20 [Rx] Ibuprofen [Motrin] 600 mg PO Q6H PRN #20 tab 12/24/20 [Rx] oxyCODONE HCl/Acetaminophen [Percocet 10-325 mg Tablet] 1 each PO Q4H #20 tablet 12/24/20 [Rx] Past Medical History HEENT History: Reports: None, Other (See Below) Other HEENT History: Lee's Esophagus Cardiovascular History: Reports: None Respiratory History: Reports: None Gastrointestinal History: Reports: Cholelithiasis, GERD, Hiatal Hernia Genitourinary History: Reports: None Musculoskeletal History: Reports: Back Pain, Chronic, Fracture, None Other Musculoskeletal History: lower back fusion Neurological History: Reports: None Psychiatric History: Reports: None Endocrine/Metabolic History: Reports: None Hematologic History: Reports: None Immunologic History: Reports: None Oncologic (Cancer) History: Reports: None Dermatologic History: Reports: None - Infectious Disease History Infectious Disease History: Reports: Chicken Pox - Past Surgical History GI Surgical History: Reports: Appendectomy, Cholecystectomy, Esophageal Dilatation, Bonnie Fundoplication Social & Family History - Family History Family Medical History: No Pertinent Family History - Caffeine Use Caffeine Use: Reports: Coffee - Living Situation & Occupation Living situation: Reports: Occupation: Employed ED ROS GENERAL - Review of Systems Review Of Systems: Comprehensive ROS is negative, except as noted in HPI. ED EXAM, GENERAL - Physical Exam Exam: See Below Exam Limited By: No Limitations General Appearance: Alert, WD/WN, No Apparent Distress Ears: Hearing Grossly Normal Throat/Mouth: Normal Voice, No Airway Compromise Head: Atraumatic, Normocephalic Neck: Normal Inspection Respiratory/Chest: No Respiratory Distress, Lungs Clear, Normal Breath Sounds, No Accessory Muscle Use Cardiovascular: Normal Peripheral Pulses, Regular Rate, Rhythm GI/Abdominal: Soft, Other (RLQ TTP with guarding) Extremities: Normal Inspection Neurological: Alert, Normal Cognition, Normal Gait Psychiatric: Normal Affect, Normal Mood Skin Exam: Warm, Dry, Intact, Normal Color Course - Vital Signs Last Recorded V/S: Last Vital Signs Temp 97.8 F 12/24/20 07:08 Pulse 62 12/24/20 09:24 Resp 18 12/24/20 09:24 BP 131/80 12/24/20 09:24 Pulse Ox 98 12/24/20 09:24 - Orders/Labs/Meds Orders: Active Orders 24 hr Category Date Time Status Sodium Chloride 0.9% [Saline Flush] Med 12/24/20 07:23 Active 10 ml FLUSH ASDIRECTED PRN Sodium Chloride 0.9% [Saline Flush] Med 12/24/20 07:23 Active 2.5 ml FLUSH ASDIRECTED PRN Saline Lock Insert [OM.PC] Stat Oth 12/24/20 07:23 Ordered Medication Orders Sodium Chloride (Sodium Chloride 0.9% 10 Ml Syringe) 10 ml FLUSH ASDIRECTED PRN PRN Reason: Keep Vein Open Last Admin: 12/24/20 09:31 Dose: 10 ml Documented by: Admin: 12/24/20 07:31 Dose: 10 ml Documented by: NINA Sodium Chloride (Sodium Chloride 0.9% 2.5 Ml Syringe) 2.5 ml FLUSH ASDIRECTED PRN PRN Reason: Keep Vein Open Last Admin: 12/24/20 09:31 Dose: 2.5 ml Documented by: Admin: 12/24/20 07:32 Dose: 2.5 ml Documented by: NIAN Labs: Laboratory Tests 12/24/20 12/24/20 12/24/20 Range/Units 07:20 07:25 07:25 WBC 9.21 (4.0-11.0) K/uL RBC 5.25 (4.50-5.90) M/uL Hgb 16.3 (13.0-17.0) g/dL Hct 45.7 (38.0-50.0) % MCV 87.0 (80.0-98.0) fL MCH 31.0 (27.0-32.0) pg MCHC 35.7 (31.0-37.0) g/dL RDW Std Deviation 38.6 (28.0-62.0) fl RDW Coeff of [place] 12 (11.0-15.0) % Plt Count 264 (150-400) K/uL MPV 10.20 (7.40-12.00) fL Neut % (Auto) 62.3 (48.0-80.0) % Lymph % (Auto) 25.5 (16.0-40.0) % [place] % (Auto) 8.7 (0.0-15.0) % Eos % (Auto) 3.0 (0.0-7.0) % Baso % (Auto) 0.5 (0.0-1.5) % Neut # (Auto) 5.7 (1.4-5.7) K/uL Lymph # (Auto) 2.4 (0.6-2.4) K/uL [place] # (Auto) 0.8 (0.0-0.8) K/uL Eos # (Auto) 0.3 (0.0-0.7) K/uL Baso # (Auto) 0.1 (0.0-0.1) K/uL Nucleated RBC % 0.0 /100WBC Nucleated RBCs # 0 K/uL Sodium 141 (136-148) mmol/L Potassium 4.1 (3.5-5.1) mmol/L Chloride 104 (98-107) mmol/L Carbon Dioxide 26.1 (21.0-32.0) mmol/L BUN 11 (7.0-18.0) mg/dL Creatinine 1.0 (0.8-1.3) mg/dL Est Cr Clr Drug Dosing 95.95 mL/min Estimated GFR (MDRD) > 60.0 ml/min Glucose 103 (74-106) mg/dL Calcium 9.0 (8.5-10.1) mg/dL Total Bilirubin 0.6 (0.2-1.0) mg/dL AST 20 (15-37) IU/L ALT 66 H (14-63) IU/L Alkaline Phosphatase 76 (46-116) U/L Total Protein 7.4 (6.4-8.2) g/dL Albumin 4.5 (3.4-5.0) g/dL Globulin 2.9 (2.6-4.0) g/dL Albumin/Globulin Ratio 1.6 (0.9-1.6) Lipase (73-393) U/L Urine Color YELLOW Urine Appearance CLEAR Urine pH 6.0 (5.0-8.0) Ur Specific [place] 1.010 (1.001-1.035) Urine Protein NEGATIVE (NEGATIVE) mg/dL Urine Glucose (UA) NEGATIVE (NEGATIVE) mg/dL Urine Ketones NEGATIVE (NEGATIVE) mg/dL Urine Occult Blood NEGATIVE (NEGATIVE) Urine Nitrite NEGATIVE (NEGATIVE) Urine Bilirubin NEGATIVE (NEGATIVE) Urine Urobilinogen 0.2 (<2.0) EU/dL Ur Leukocyte Esterase NEGATIVE (NEGATIVE) 12/24/20 Range/Units 07:25 WBC (4.0-11.0) K/uL RBC (4.50-5.90) M/uL Hgb (13.0-17.0) g/dL Hct (38.0-50.0) % MCV (80.0-98.0) fL MCH (27.0-32.0) pg MCHC (31.0-37.0) g/dL RDW Std Deviation (28.0-62.0) fl RDW Coeff of [place] (11.0-15.0) % Plt Count (150-400) K/uL MPV (7.40-12.00) fL Neut % (Auto) (48.0-80.0) % Lymph % (Auto) (16.0-40.0) % [place] % (Auto) (0.0-15.0) % Eos % (Auto) (0.0-7.0) % Baso % (Auto) (0.0-1.5) % Neut # (Auto) (1.4-5.7) K/uL Lymph # (Auto) (0.6-2.4) K/uL [place] # (Auto) (0.0-0.8) K/uL Eos # (Auto) (0.0-0.7) K/uL Baso # (Auto) (0.0-0.1) K/uL Nucleated RBC % /100WBC Nucleated RBCs # K/uL Sodium (136-148) mmol/L Potassium (3.5-5.1) mmol/L Chloride (98-107) mmol/L Carbon Dioxide (21.0-32.0) mmol/L BUN (7.0-18.0) mg/dL Creatinine (0.8-1.3) mg/dL Est Cr Clr Drug Dosing mL/min Estimated GFR (MDRD) ml/min Glucose (74-106) mg/dL Calcium (8.5-10.1) mg/dL Total Bilirubin (0.2-1.0) mg/dL AST (15-37) IU/L ALT (14-63) IU/L Alkaline Phosphatase (46-116) U/L Total Protein (6.4-8.2) g/dL Albumin (3.4-5.0) g/dL Globulin (2.6-4.0) g/dL Albumin/Globulin Ratio (0.9-1.6) Lipase 200 (73-393) U/L Urine Color Urine Appearance Urine pH (5.0-8.0) Ur Specific [place] (1.001-1.035) Urine Protein (NEGATIVE) mg/dL Urine Glucose (UA) (NEGATIVE) mg/dL Urine Ketones (NEGATIVE) mg/dL Urine Occult Blood (NEGATIVE) Urine Nitrite (NEGATIVE) Urine Bilirubin (NEGATIVE) Urine Urobilinogen (<2.0) EU/dL Ur Leukocyte Esterase (NEGATIVE) Meds: Medications Generic Name Dose Route Start Last Admin Trade Name Freq PRN Reason Stop Dose Admin Sodium Chloride 10 ml 12/24/20 07:23 12/24/20 09:31 Sodium Chloride 0.9% 10 Ml Syringe FLUSH 10 ml ASDIRECTED PRN Administration Keep Vein Open Sodium Chloride 2.5 ml 12/24/20 07:23 12/24/20 09:31 Sodium Chloride 0.9% 2.5 Ml Syringe FLUSH 2.5 ml ASDIRECTED PRN Administration Keep Vein Open Discontinued Medications Generic Name Dose Route Start Last Admin Trade Name Freq PRN Reason Stop Dose Admin Hydromorphone HCl 1 mg 12/24/20 09:25 12/24/20 09:30 Hydromorphone 1 Mg/Ml Syringe IVPUSH 12/24/20 09:26 1 mg ONETIME ONE Administration Morphine Sulfate 4 mg 12/24/20 07:23 12/24/20 07:31 Morphine 4 Mg/Ml Syringe IVPUSH 12/24/20 07:24 4 mg ONETIME ONE Administration Ondansetron HCl 4 mg 12/24/20 07:23 12/24/20 07:31 Ondansetron 4 Mg/2 Ml Sdv IVPUSH 12/24/20 07:24 4 mg ONETIME ONE Administration - Re-Assessments/Exams Free Text/Narrative Re-Assessment/Exam: 12/24/20 07:25 Patient presents with right lower quadrant abdominal pain in setting of prior appendectomy. Will get labs. Will get CT imaging of the abdomen and pelvis. Will give analgesia while working up. 12/24/20 10:35 CT imaging shows small area of likely omental infarct. Will discharge patient with antibiotics to prevent infection and pain medication. Recommend follow-up with primary care physician return precautions including pain not well tolerated at home, inability to tolerate p.o., fevers were discussed with patient. Departure - Departure Time of Disposition: 10:36 Disposition: Home, Self-Care 01 Condition: Good Clinical Impression: Omental infarction - Discharge Information Prescriptions: Amoxicillin/Potassium Clav [Augmentin 875-125 Tablet] 1 each PO BID #14 tablet Ibuprofen [Motrin] 600 mg PO Q6H PRN #20 tab PRN Reason: Pain oxyCODONE HCl/Acetaminophen [Percocet 10-325 mg Tablet] 1 each PO Q4H #20 tablet Instructions: Epiploic Appendagitis Referrals: Kwadwo Ryan MD [Primary Care Provider] - Forms: ED Department Discharge Additional Instructions: Your labs are all unremarkable. Your CT shows evidence of an omental infarct. This is also called epiploic appendagitis. This is basically a small area of fat tissue that has lost blood supply and is dying. This can be very painful and often mimics appendicitis, however, it is typically not a clinically serious disease and treatment is with pain medication and antibiotics to prevent infection. Very rarely if the pain does not go away after several days of pain medication surgery is required to remove the infarcted tissue. The following information is given to patients seen in the emergency department who are being discharged to home. This information is to outline your options for follow-up care. We provide all patients seen in our emergency department with a follow-up referral. The need for follow-up, as well as the timing and circumstances, are variable depending upon the specifics of your emergency department visit. If you don't have a primary care physician on staff, we will provide you with a referral. We always advise you to contact your personal physician following an emergency department visit to inform them of the circumstance of the visit and for follow-up with them and/or the need for any referrals to a consulting specialist. The emergency department will also refer you to a specialist when appropriate. This referral assures that you have the opportunity for follow-up care with a specialist. All of these measure are taken in an effort to provide you with optimal care, which includes your follow-up. Under all circumstances we always encourage you to contact your private physician who remains a resource for coordinating your care. When calling for follow-up care, please make the office aware that this follow-up is from your recent emergency room visit. If for any reason you are refused follow-up, please contact the [facility] Emergency Department at and asked to speak to the emergency department charge nurse. Please follow up with your primary care physician. If you do not have a primary care physician, see below: [facility] [address], [place] [address] [facility] [address] [place], [place] [id number] [facility] [address] [place] [address] Sepsis Event Note (ED) - Focused Exam Vital Signs: Vital Signs Temp Pulse Resp BP Pulse Ox 12/24/20 09:24 62 18 131/80 98 12/24/20 08:48 88 18 131/72 97 12/24/20 08:05 78 18 140/73 97 12/24/20 07:08 97.8 F 78 18 129/92 H 96 - My Orders Last 24 Hours: My Active Orders 12/24/20 07:23 Sodium Chloride 0.9% [Saline Flush] 10 ml FLUSH ASDIRECTED PRN Sodium Chloride 0.9% [Saline Flush] 2.5 ml FLUSH ASDIRECTED PRN Saline Lock Insert [OM.PC] Stat - Assessment/Plan Last 24 Hours: My Active Orders 12/24/20 07:23 Sodium Chloride 0.9% [Saline Flush] 10 ml FLUSH ASDIRECTED PRN Sodium Chloride 0.9% [Saline Flush] 2.5 ml FLUSH ASDIRECTED PRN Saline Lock Insert [OM.PC] Stat
[2020-12-24] MEDS ORDERED: Ondansetron 4 MG/2 ML SDV IVPUSH ONE (07:23)
[2020-12-24] MEDS ORDERED: Morphine 4 MG/ML Syringe IVPUSH ONE (07:23)
[2020-12-24] MEDS: Sodium Chloride 0.9% 10 ML Syringe FLUSH PRN ×2 (07:31→09:31)
[2020-12-24] MEDS: Sodium Chloride 0.9% 2.5 ML Syringe FLUSH PRN ×2 (07:32→09:31)
[2020-12-24 08:08] LABS: BLOOD UREA NITROGEN,BUN 11 mg/dL (7.0-18.0); CARBON DIOXIDE,CO2 26.1 mmol/L (21.0-32.0); CHLORIDE,CL 104 mmol/L (98-107); GLUCOSE RANDOM 103 mg/dL (74-106); POTASSIUM,K 4.1 mmol/L (3.5-5.1); SODIUM,NA 141 mmol/L (136-148)
[2020-12-24] MEDS ORDERED: HYDROmorphone 1 MG/ML Syringe IVPUSH ONE (09:25)
--- NOTE | 2020-12-24 10:28 | CT ---
Indication: Right lower quadrant pain. History of appendectomy and cholecystectomy. Comparison: 08/18/2020 Technique: CT of the abdomen and pelvis with IV contrast. 100 cc of Isovue 370. Findings: Limited examination lung bases reveal no pleural effusion no new focal or diffuse pulmonary opacity. Calcified granuloma along the right heart border re-demonstrated. Postoperative changes at the gastroesophageal junction with clips seen there. Cholecystectomy clips. Severe diffuse hepatic steatosis. A focal geographic area of hyperenhancement is seen within segment 7 of the liver, non masslike. The portal and hepatic veins are patent. The splenic and mesenteric veins are patent. The urinary bladder is unremarkable. The prostate is mildly enlarged. Trace free fluid in the pelvis. Appendectomy change in the right lower quadrant. No drainable fluid collection. No bowel obstruction. No suspicious retroperitoneal or mesenteric lymphadenopathy. No abdominal aortic aneurysm. The proximal visceral arteries appear patent. Postoperative changes with posterior spinal fusion and decompression seen at L5-S1. Bone grafting site in the right iliac wing. Kidneys enhance symmetrically without hydronephrosis. No pancreatitis or obvious pancreatic mass. No intra or extrahepatic biliary ductal dilatation. Adrenal glands appear unremarkable. No suspicious retroperitoneal or mesenteric lymphadenopathy. Small 3.3 x 1.5 cm oval-shaped fat containing mass with a hyperdense rim and adjacent inflammatory stranding in the right lower quadrant omentum, best seen on image 136, series 201 and on image 40, series 203. Impression: 1. Small 3.3 x 1.5 cm oval-shaped fat containing mass with a hyperdense rim and adjacent inflammatory stranding in the right lower quadrant omentum, most likely represents a small omental infarct, versus epiploic appendagitis. 2. Severe diffuse hepatic steatosis, with a focal area geographic hyperenhancement in segment 7, which could be fatty sparing or perfusional alteration. 3. Previous cholecystectomy and appendectomy. 4. Postoperative changes with posterior spinal fusion and decompression seen at L5-S1. Please note that all CT scans at this facility use dose modulation, iterative reconstruction, and/or weight-based dosing when appropriate to reduce radiation dose to as low as reasonably achievable. Dictated by Jsoe Persaud MD @ 12/24/2020 10:27:47 AM (Electronically Signed)
[2020-12-24 10:53] VITALS: BP 133/73; PULSE 82
[2020-12-24] MEDS ORDERED: Iopamidol 755 MG/ML 500 ML Multipack Bottle IVPUSH STA (16:27)
== END 2020-12-24 10:53 | disposition home or self-care (01) ==
LOC: MW.ED 06:17
DX: K55.069 Acute infarction of intestine, part and extent unspecified (principal); Z88.5 Allergy status to narcotic agent; Z88.8 Allergy status to other drugs, medicaments and biological substances; Z90.49 Acquired absence of other specified parts of digestive tract
CPT/HCPCS: 74177; 80053; 81003; 83690; 85025; 96374; 96375; 99284; J1170; J2270; J2405; Q9967

== ENCOUNTER 2021-01-04 10:23 | Observation (INO) | payer OTHER ==
--- NOTE | 2021-01-04 10:40 | PCM.EKG ---
#1 Interpretation EKG Date: 01/04/21 Time: 10:27 Rhythm: NSR Rate (Beats/Min): 75 Bone Gap: Normal P-Wave: Present QRS: Normal ST-T: Normal QT: Normal Comparison: No Change (03/21/19) EKG Interpretation Comments: Sinus Rhythm
[2021-01-04] MEDS ORDERED: Sodium Chloride 0.9% 1,000 ML IV STA (10:44)
[2021-01-04 11:15] LABS: BLOOD UREA NITROGEN,BUN 12 mg/dL (7.0-18.0); CARBON DIOXIDE,CO2 25.9 mmol/L (21.0-32.0); CHLORIDE,CL 104 mmol/L (98-107); GLUCOSE RANDOM 143 mg/dL (74-106); POTASSIUM,K 4.1 mmol/L (3.5-5.1); SODIUM,NA 141 mmol/L (136-148)
--- NOTE | 2021-01-04 11:41 | EDM.PDOC ---
ED HPI GENERAL MEDICAL PROBLEM - General Chief Complaint: General Stated Complaint: REACTION TO INJECTION Time Seen by Provider: 01/04/21 10:31 - History of Present Illness INITIAL COMMENTS - FREE TEXT/NARRATIVE: CHIEF COMPLAINT(S): Neck pain HISTORY OF PRESENT ILLNESS: This is a 40-year-old man with a past medical history of mild degenerative disc bulge at C5-C6 and degenerative endplate spurring at T1-T2 without stenosis, irritable bowel syndrome who comes to the emergency department with a chief complaint of neck pain. The patient was at the pain clinic for an epidural injection. The patient currently states that hi s whole body feels heavy and he is experiencing 5 out of 10 pain in his neck without any numbness or tingling. He denies any headache, blurry vision, loss of vision but states that his neck does hurt. He is able to move his neck in all directions. He denies any fever or chills. He does not recall what happened at the pain clinic. He denies any urinary incontinence, bowel incontinence. Dr. Kirby contacted me and stated that he was doing a cervical epidural injection when the patient's heart rate became bradycardiac and he was unresponsive. He states that during that time the oxygen did not decrease, the blood pressure was fine and never hypotensive. He states that they provided 1 dose of epinephrine which did not work and so that he gave him 2 0.5 mg of atropine with his heart rate improving by the time EMS arrived the patient was back to normal. He states that he injected ropivacaine 0.5% 2 cc for the epidural injection. He states that some of the ropivacaine must have leaked into the vessel causing the symptoms. He recommends observation. REVIEW OF SYSTEMS: Constitutional: Denies fever, chills. Eyes: Denies eye pain Ears, Nose, Mouth, & Throat: Denies earache Cardiovascular: Denies chest pain Respiratory: Denies shortness of breath Gastrointestinal: Denies Nausea, vomiting, diarrhea, hematochezia. Genitourinary: Denies hematuria Skin:Denies a rash MSK: Positive for neck pain. Denies joint pain Neurological: Denies blurred vision loss of vision, numbness, tingling, weakness Psychiatric: Denies depression PAST MEDICAL HISTORY: As per history of present illness and as reviewed below otherwise noncontributory. SURGICAL HISTORY: As per history of present illness and as reviewed below otherwise noncontributory. SOCIAL HISTORY: As per history of present illness and as reviewed below otherwise noncontributory. FAMILY HISTORY: As per history of present illness and as reviewed below otherwise noncontributory. EXAMINATION OF ORGAN SYSTEMS/BODY AREAS: Constitutional: Blood pressure was 125/77, heart rate 81, respiratory rate 12 with an oxygen saturation 97% on room air. Temperature 35.3 orally General: Well-appearing man who is laying flat on the stretcher in no acute distress Psychiatric: Appropriate mood and affect. Eyes: No scleral icterus or conjunctival erythema pupils are 5 mm and reactive bilaterally. Extraocular movements intact. No vertical horizontal nystagmus. ENMT: Moist mucous membranes. No pharyngeal erythema tongue protrudes midline. Cardiovascular: Regular, rate, and rhythm. No gallops, murmurs, or rubs. Bilateral upper extremity pulses symmetric and intact. No peripheral edema. No JVD. Respiratory: Lungs clear to auscultation bilaterally. No wheezes, rales, or rhonchi. Gastrointestinal: Soft, non-tender, non-distended. Normoactive bowel sounds Genitourinary: No suprapubic tenderness Musculoskeletal: Normal range of motion. There is midline cervical tenderness. There is also bilateral paracervical tenderness. Skin: No lesions or abrasions. Neurological: AOx4. CN grossly intact. Strength 5/5 in bilateral upper and lower extremity. Sensation is intact bilaterally in upper and lower extremity. MEDICAL DECISION MAKING AND COURSE IN THE ED WITH INTERPRETATION/REVIEW OF DIAGNOSTIC STUDIES: This is a 40-year-old man with a past medical history of neck pain who comes to the emergency department with an episode of bradycardia, unresponsiveness status post 2 doses of atropine after a ropivacaine injection for epidural anesthesia who is currently normotensive and a little hypothermic. We did place warm blankets on the patient and provide the patient with 1 L of warm normal saline. At this time given the history of bradycardia, epidural injection I am concerned about the possibility of spinal epidural hematoma. Will obtain a CT head and CT C-spine and CT thoracic spine without contrast for further evaluation. He is currently vitally stable therefore we will just monitor the patient. We will place the patient on satellite project site monitor and pulse oximetry. EKG was obtained which did not reveal any acute signs of ischemia. We contacted poison control regarding ropivacaine administration intravascularly. They stated that given the amount that was injected it is not a lethal dose. They recommended EKG to evaluate for QRS widening otherwise just symptomatic treatment. At this time the patient's heart rate, blood pressure are stable. Laboratory: CBC is unremarkable. INR is normal. BMP is normal. Covid is negative. The radiological images were viewed by myself along with reading the report from the radiologist. CT head without contrast does not reveal any acute intracranial abnormality. CT cervical spine does not reveal any fracture or dislocation or evidence of subdural or epidural hematoma. CT thoracic spine without contrast does not reveal any fracture or dislocation. There is a thin collection of hyperdense material seen in the posterior aspect of the spinal canal in the mid thoracic spine. Given the history of recent epidural injection this is likely rated to contrast and not hemorrhage. Intradural location is considered less likely. Given the imaging I did contact [facility] in [place] and spoke with Dr. Montemayor. He states that at this time he believes this is likely contrast however to confirm with pain specialist if he did use contrast. If there is contrast that was used there is nothing that needs to be done. I contacted the patient's pain specialist Dr. Kirby who stated that he did use 1 cc of contrast. Therefore at this time I do believe this is secondary to the contrast administration. In addition I did discuss with him that given the injection is a common to have a post dural headache. He states that this is not common but it is possible. He recommended symptomatic treatment at this time. On reevaluation I did discuss the results with the patient and the patient's significant other at bedside. At this time given the continued headache I did discuss with patient observation admission. He was amenable to this plan. We will provide the patient with Toradol IV for pain relief and 4 mg of Zofran as the patient is feeling nauseous. DISPOSITION: Patient is admitted for observation in stable condition CONDITION: Fair PROCEDURES: None FINAL IMPRESSION(S)/DIAGNOSES: 1. Acute spinal headache 2. Acute accidental ropivacaine IV injection with subsequent bradycardia, resolved David Joseph M.D. Neck Pain Score (Numeric/FACES): 4 - Related Data Allergies Allergy/AdvReac Type Severity Reaction Status Date / Time No Known Allergies Allergy Verified 01/04/21 18:37 Home Meds: Home Meds Acetaminophen 500 mg PO Q6HR 10/13/16 [History] Cetirizine [ZyrTEC] 10 mg PO DAILY 10/13/16 [History] Cholecalciferol (Vitamin D3) [Vitamin D] 5,000 unit PO DAILY 10/13/16 [History] Colestipol HCl [Colestipol] 2 gm PO DAILY 10/13/16 [History] Fish Oil/Cowley-3 Fatty Acids [Fish Oil 1,000 MG] 1 gm PO DAILY 10/13/16 [History] polyethylene glycoL 3350 [Polyethylene Glycol 3350] 17 gm PO ASDIRECTED 10/13/16 [History] Ketamine [Ketalar] 200 mg DEVONTE DAILY PRN 03/25/17 [History] Baclofen 1 tab PO BID 08/18/20 [History] Cetirizine HCl [Zyrtec] 1 tab PO DAILY 08/18/20 [History] Hydrocortisone Acetate 25 mg RC BID 7 Days #14 supp.rect 08/18/20 [Rx] Acetaminophen/oxyCODONE [Percocet 325-10 MG] 1 tab PO Q4H PRN #20 tab 12/24/20 [Rx] Amoxicillin/Potassium Clav [Augmentin 875-125 Tablet] 1 each PO BID #14 tablet 12/24/20 [Rx] Ibuprofen [Motrin] 600 mg PO Q6H PRN #20 tab 12/24/20 [Rx] oxyCODONE HCl/Acetaminophen [Percocet 10-325 mg Tablet] 1 each PO Q4H #20 tablet 12/24/20 [Rx] Past Medical History HEENT History: Reports: None, Other (See Below) Other HEENT History: Lee's Esophagus Cardiovascular History: Reports: None Respiratory History: Reports: None Gastrointestinal History: Reports: Cholelithiasis, GERD, Hiatal Hernia Genitourinary History: Reports: None Musculoskeletal History: Reports: Back Pain, Chronic, Fracture, None Other Musculoskeletal History: lower back fusion Neurological History: Reports: None Psychiatric History: Reports: None Endocrine/Metabolic History: Reports: None Hematologic History: Reports: None Immunologic History: Reports: None Oncologic (Cancer) History: Reports: None Dermatologic History: Reports: None - Infectious Disease History Infectious Disease History: Reports: Chicken Pox - Past Surgical History Head Surgeries/Procedures: Reports: None HEENT Surgical History: Reports: None GI Surgical History: Reports: Appendectomy, Cholecystectomy, Esophageal Dilatation, Bonnie Fundoplication Male Surgical History: Reports: None Other Musculoskeletal Surgeries/Procedures:: left foot fracture Social & Family History - Family History Family Medical History: No Pertinent Family History - Tobacco Use Second Hand Smoke Exposure: No - Caffeine Use Caffeine Use: Reports: None - Recreational Drug Use Recreational Drug Use: No - Living Situation & Occupation Living situation: Reports: Occupation: Employed ED ROS GENERAL - Review of Systems Review Of Systems: See Below ED EXAM, GENERAL - Physical Exam Exam: See Below Course - Vital Signs Last Recorded V/S: Last Vital Signs Temp 36.9 C 01/04/21 17:50 Pulse 79 01/04/21 17:50 Resp 16 01/04/21 17:50 BP 109/73 01/04/21 17:50 Pulse Ox 93 L 01/04/21 17:50 - Orders/Labs/Meds Orders: Medication Orders Acetaminophen (Acetaminophen 325 Mg Tab) 650 mg PO Q4H PRN PRN Reason: Pain Baclofen (Baclofen 10 Mg Tab) 10 mg PO BID ZULEYMA Last Admin: 01/04/21 19:08 Dose: 10 mg Documented by: CADEN Cetirizine HCl (Cetirizine 10 Mg Tab) 10 mg PO DAILY [facility] Docusate Sodium (Docusate Sodium 100 Mg Cap) 100 mg PO BID PRN PRN Reason: Constipation Sodium Chloride (Normal Saline) 1,000 mls @ 150 mls/hr IV Q6HR ZULEYMA Last Admin: 01/04/21 18:37 Dose: Not Given Documented by: Admin: 01/04/21 18:11 Dose: 150 mls/hr Documented by: CADEN Ibuprofen (Ibuprofen 600 Mg Tab) 600 mg PO Q6H PRN PRN Reason: Pain Ondansetron HCl (Ondansetron 4 Mg/2 Ml Sdv) 4 mg IVPUSH Q4H PRN PRN Reason: Nausea Oxycodone HCl (Oxycodone 5 Mg Tab) 5 mg PO Q4H PRN PRN Reason: Pain Last Admin: 01/04/21 18:26 Dose: 5 mg Documented by: CADEN Sodium Chloride (Sodium Chloride 0.9% 2.5 Ml Syringe) 2.5 ml FLUSH ASDIRECTED PRN PRN Reason: Keep Vein Open Labs: Laboratory Tests 01/04/21 01/04/21 01/04/21 Range/Units 10:35 10:35 10:35 WBC 6.98 (4.0-11.0) K/uL RBC 4.85 (4.50-5.90) M/uL Hgb 14.8 (13.0-17.0) g/dL Hct 41.8 (38.0-50.0) % MCV 86.2 (80.0-98.0) fL MCH 30.5 (27.0-32.0) pg MCHC 35.4 (31.0-37.0) g/dL RDW Std Deviation 37.4 (28.0-62.0) fl RDW Coeff of Aguilar 12 (11.0-15.0) % Plt Count 278 (150-400) K/uL MPV 10.00 (7.40-12.00) fL Neut % (Auto) 50.1 (48.0-80.0) % Lymph % (Auto) 41.4 H (16.0-40.0) % [place] % (Auto) 5.7 (0.0-15.0) % Eos % (Auto) 2.4 (0.0-7.0) % Baso % (Auto) 0.4 (0.0-1.5) % Neut # (Auto) 3.5 (1.4-5.7) K/uL Lymph # (Auto) 2.9 H (0.6-2.4) K/uL [place] # (Auto) 0.4 (0.0-0.8) K/uL Eos # (Auto) 0.2 (0.0-0.7) K/uL Baso # (Auto) 0.0 (0.0-0.1) K/uL Nucleated RBC % 0.0 /100WBC Nucleated RBCs # 0 K/uL INR 1.00 Sodium 141 (136-148) mmol/L Potassium 4.1 (3.5-5.1) mmol/L Chloride 104 (98-107) mmol/L Carbon Dioxide 25.9 (21.0-32.0) mmol/L BUN 12 (7.0-18.0) mg/dL Creatinine 1.1 (0.8-1.3) mg/dL Est Cr Clr Drug Dosing 87.23 mL/min Estimated GFR (MDRD) > 60.0 ml/min Glucose 143 H (74-106) mg/dL Calcium 8.9 (8.5-10.1) mg/dL SARS-CoV-2 RNA (KOFI) (NEGATIVE) 01/04/21 Range/Units 14:47 WBC (4.0-11.0) K/uL RBC (4.50-5.90) M/uL Hgb (13.0-17.0) g/dL Hct (38.0-50.0) % MCV (80.0-98.0) fL MCH (27.0-32.0) pg MCHC (31.0-37.0) g/dL RDW Std Deviation (28.0-62.0) fl RDW Coeff of Aguilar (11.0-15.0) % Plt Count (150-400) K/uL MPV (7.40-12.00) fL Neut % (Auto) (48.0-80.0) % Lymph % (Auto) (16.0-40.0) % [place] % (Auto) (0.0-15.0) % Eos % (Auto) (0.0-7.0) % Baso % (Auto) (0.0-1.5) % Neut # (Auto) (1.4-5.7) K/uL Lymph # (Auto) (0.6-2.4) K/uL [place] # (Auto) (0.0-0.8) K/uL Eos # (Auto) (0.0-0.7) K/uL Baso # (Auto) (0.0-0.1) K/uL Nucleated RBC % /100WBC Nucleated RBCs # K/uL INR Sodium (136-148) mmol/L Potassium (3.5-5.1) mmol/L Chloride (98-107) mmol/L Carbon Dioxide (21.0-32.0) mmol/L BUN (7.0-18.0) mg/dL Creatinine (0.8-1.3) mg/dL Est Cr Clr Drug Dosing mL/min Estimated GFR (MDRD) ml/min Glucose (74-106) mg/dL Calcium (8.5-10.1) mg/dL SARS-CoV-2 RNA (KOFI) NEGATIVE (NEGATIVE) Meds: Medications Generic Name Dose Route Start Last Admin Trade Name Freq PRN Reason Stop Dose Admin Acetaminophen 650 mg 01/04/21 17:00 Acetaminophen 325 Mg Tab PO Q4H PRN Pain Baclofen 10 mg 01/04/21 18:45 01/04/21 19:08 Baclofen 10 Mg Tab PO 10 mg BID ZULEYMA Administration Cetirizine HCl 10 mg 01/05/21 09:00 Cetirizine 10 Mg Tab PO DAILY ZULEYMA Docusate Sodium 100 mg 01/04/21 21:00 Docusate Sodium 100 Mg Cap PO BID PRN Constipation Sodium Chloride 1,000 mls @ 150 mls/hr 01/04/21 17:00 01/04/21 18:37 Normal Saline IV Not Given Q6HR ZULEYMA Ibuprofen 600 mg 01/04/21 17:00 Ibuprofen 600 Mg Tab PO Q6H PRN Pain Ondansetron HCl 4 mg 01/04/21 17:00 Ondansetron 4 Mg/2 Ml Sdv IVPUSH Q4H PRN Nausea Oxycodone HCl 5 mg 01/04/21 17:00 01/04/21 18:26 Oxycodone 5 Mg Tab PO 5 mg Q4H PRN Administration Pain Sodium Chloride 2.5 ml 01/04/21 16:38 Sodium Chloride 0.9% 2.5 Ml Syringe FLUSH ASDIRECTED PRN Keep Vein Open Discontinued Medications Generic Name Dose Route Start Last Admin Trade Name Becky PRN Reason Stop Dose Admin Caffeine Citrate 300 mg 01/04/21 17:00 01/04/21 18:11 Caffeine Citrated (For Neonates) 60 Mg/3 Ml PO 01/04/21 17:01 300 mg ONETIME ONE Administration Sodium Chloride 1,000 mls @ 999 mls/hr 01/04/21 10:44 01/04/21 10:47 Normal Saline IV 01/04/21 11:44 999 mls/hr STAT STA Administration Sodium Chloride 1,000 mls @ 1,000 mls/hr 01/04/21 13:03 01/04/21 13:32 Normal Saline IV 01/04/21 14:02 1,000 mls/hr .Bolus ONE Administration Ketorolac Tromethamine 15 mg 01/04/21 15:04 01/04/21 15:20 Ketorolac 15 Mg/Ml Sdv IVPUSH 01/04/21 15:05 15 mg ONETIME ONE Administration Morphine Sulfate 4 mg 01/04/21 13:29 01/04/21 13:35 Morphine 4 Mg/Ml Syringe IVPUSH 01/04/21 13:30 4 mg ONETIME ONE Administration Ondansetron HCl 4 mg 01/04/21 13:22 01/04/21 13:32 Ondansetron 4 Mg/2 Ml Sdv IVPUSH 01/04/21 13:23 4 mg ONETIME ONE Administration Oxycodone HCl 5 mg 01/04/21 13:05 01/04/21 13:40 Oxycodone 5 Mg/5 Ml Cup PO 01/04/21 13:06 Not Given ONETIME ONE Departure - Departure Time of Disposition: 15:10 Disposition: Refer to Observation Condition: Fair Clinical Impression: Spinal headache - Discharge Information Sepsis Event Note (ED) - Evaluation Sepsis Screening Result: No Definite Risk - Focused Exam Vital Signs: Vital Signs Temp Pulse Resp BP Pulse Ox 01/04/21 13:00 61 16 117/57 L 97 01/04/21 12:00 61 16 135/87 97 01/04/21 11:00 72 95 01/04/21 10:36 35.3 C L 81 12 125/77 97
--- NOTE | 2021-01-04 11:58 | CT ---
INDICATION: Weakness. TECHNIQUE: Noncontrast. Sagittal and coronal reconstructions. COMPARISON: None. FINDINGS: There is no abnormal intra mass effect or midline shift. No acute intracranial hemorrhage. No areas of abnormal attenuation seen within the brain. CSF spaces are age-appropriate. No acute osseous abnormality. IMPRESSION: No CT evidence of an acute intracranial abnormality. Dictated by Nolan Moralez MD @ 01/04/2021 11:56:01 AM Please note that all CT scans at this facility use dose modulation, iterative reconstruction, and/or weight-based dosing when appropriate to reduce radiation dose to as low as reasonably achievable. Dictated by: Nolan Moralez MD @ 01/04/2021 11:56:07 (Electronically Signed)
--- NOTE | 2021-01-04 12:18 | CT ---
INDICATION: Recent epidural injection. Weakness. Evaluate for hematoma. TECHNIQUE: Noncontrast axial images were acquired through the thoracic spine with sagittal and coronal reconstructions. COMPARISON: None. FINDINGS: The curvature and alignment of the thoracic spine are within normal limits. No thoracic spine fracture is identified. The disc spaces are relatively well maintained. Mild endplate degenerate spurring is seen anteriorly at multiple levels. Intraspinal contents are suboptimally assessed with CT. There is a thin/linear collection of hyperdense material seen posteriorly in the spinal canal at the T5 through T8 levels. This does not appear to result in significant mass effect. Given the history of a recent epidural injection, this is likely related to contrast and not hemorrhage. This may be within the subdural space. Intradural location is considered less likely. IMPRESSION: There is a thin collection of hyperdense material seen in the posterior aspect of the spinal canal in the mid thoracic spine as described above. This may be in the subdural space. This is likely related to contrast from the recent injection, and less likely related to blood products. This does not appear to result in significant mass effect although the intraspinal contents are significantly limited in their evaluation on CT. Recommend further assessment with MRI. Dictated by Nolan Moralez MD @ 01/04/2021 12:17:23 PM Please note that all CT scans at this facility use dose modulation, iterative reconstruction, and/or weight-based dosing when appropriate to reduce radiation dose to as low as reasonably achievable. Dictated by: Nolan Moralez MD @ 01/04/2021 12:17:48 (Electronically Signed)
--- NOTE | 2021-01-04 12:25 | CT ---
INDICATION: Recent epidural injection. Weakness. Evaluate for a hematoma. TECHNIQUE: Axial images. Sagittal and coronal reconstruction. COMPARISON: 11/21/2020. FINDINGS: No significant prevertebral soft tissue swelling is identified. There is straightening of the normal lordotic cervical spine curvature. No spondylolisthesis. No cervical spine fracture. Mild disc degeneration is noted at the C4-5 and C5-6 levels. Evaluation of the intraspinal contents is significantly limited by CT. No appreciable narrowing of the bony spinal canal is identified. IMPRESSION: 1. No acute osseous abnormality is identified in the cervical spine. 2. No appreciable narrowing of the bony spinal canal. The intraspinal contents are suboptimally assessed with CT. Please see the thoracic spine CT report for further discussion. Dictated by Nolan Moralez MD @ 01/04/2021 12:22:48 PM Please note that all CT scans at this facility use dose modulation, iterative reconstruction, and/or weight-based dosing when appropriate to reduce radiation dose to as low as reasonably achievable. Dictated by: Nolan Moralez MD @ 01/04/2021 12:22:59 (Electronically Signed)
[2021-01-04] MEDS ORDERED: Sodium Chloride 0.9% 1,000 ML IV ONE (13:03)
[2021-01-04] MEDS ORDERED: oxyCODONE 5 MG/5 ML Cup PO ONE (13:05)
[2021-01-04] MEDS ORDERED: Ondansetron 4 MG/2 ML SDV IVPUSH ONE (13:22)
[2021-01-04] MEDS ORDERED: Morphine 4 MG/ML Syringe IVPUSH ONE (13:29)
--- NOTE | 2021-01-04 13:38 | PCM.EKG ---
#1 Interpretation EKG Date: 01/04/21 Time: 13:14 Rhythm: NSR Rate (Beats/Min): 62 [place]: Normal P-Wave: Present QRS: Normal ST-T: Normal QT: Normal Comparison: No Change (Today) EKG Interpretation Comments: Sinus Rhythm
[2021-01-04] MEDS ORDERED: Ketorolac 15 MG/ML SDV IVPUSH ONE (15:04)
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
[2021-01-04] MEDS ORDERED: Sodium Chloride 0.9% 2.5 ML Syringe FLUSH PRN (16:38)
[2021-01-04] MEDS ORDERED: Caffeine Citrated (for neonates) 60 MG/3 ML PO ONE (17:00)
[2021-01-04] MEDS ORDERED: oxyCODONE 5 MG Tab PO PRN (17:00)
[2021-01-04] MEDS ORDERED: Acetaminophen 325 MG Tab PO PRN (17:00)
[2021-01-04] MEDS ORDERED: Ibuprofen 600 MG Tab PO PRN (17:00)
[2021-01-04] MEDS ORDERED: Ondansetron 4 MG/2 ML SDV IVPUSH PRN (17:00)
[2021-01-04] MEDS: Sodium Chloride 0.9% 1,000 ML IV SCH ×2 (18:11→18:37)
[2021-01-04] MEDS: Baclofen 10 MG Tab PO SCH (19:08)
[2021-01-04] MEDS ORDERED: Morphine 2 MG/ML SYRINGE IVPUSH PRN (20:18)
[2021-01-04] MEDS ORDERED: Docusate Sodium 100 MG Cap PO PRN (21:00)
[2021-01-05] MEDS ORDERED: HYDROmorphone 1 MG/ML Syringe IVPUSH PRN (00:22)
[2021-01-05] MEDS: Sodium Chloride 0.9% 1,000 ML IV SCH ×2 (01:18→08:11)
[2021-01-05 06:52] LABS: BLOOD UREA NITROGEN,BUN 12 mg/dL (7.0-18.0); CARBON DIOXIDE,CO2 21.9 mmol/L (21.0-32.0); CHLORIDE,CL 107 mmol/L (98-107); GLUCOSE RANDOM 183 mg/dL (74-106); POTASSIUM,K 3.9 mmol/L (3.5-5.1); SODIUM,NA 140 mmol/L (136-148)
[2021-01-05 07:43] VITALS: BP 132/67; PULSE 63
[2021-01-05] MEDS: Baclofen 10 MG Tab PO SCH (08:11)
[2021-01-05] MEDS ORDERED: Cetirizine 10 MG Tab PO SCH (09:00)
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
== END 2021-01-05 09:40 | disposition home or self-care (01) ==
LOC: MW.ED 10:23 → MW.MS 15:10
PROVIDERS: ADMIT Internal Medicine; ATTEND Internal Medicine
DX: G97.1 Other reaction to spinal and lumbar puncture (principal); E78.5 Hyperlipidemia, unspecified; G89.29 Other chronic pain; M54.9 Dorsalgia, unspecified; M54.2 Cervicalgia; F11.10 Opioid abuse, uncomplicated; R00.1 Bradycardia, unspecified; Z20.822 Contact with and (suspected) exposure to COVID-19; Z79.899 Other long term (current) drug therapy; Z88.6 Allergy status to analgesic agent; Z87.19 Personal history of other diseases of the digestive system; Z98.1 Arthrodesis status; Z90.49 Acquired absence of other specified parts of digestive tract; Z98.890 Other specified postprocedural states
CPT/HCPCS: 36415; 70450; 72125; 72128; 80048; 85025; 85610; 87635; 93005; 96375; 96376; A9270; G0378; J0706; J1170; J1885; J2270; J2405; J7030; 51798; 96374; 99285-25; U0002

== ENCOUNTER 2021-02-20 10:17 | Emergency (ER) | payer OTHER ==
[2021-02-20] MEDS ORDERED: Ondansetron 4 MG/2 ML SDV IVPUSH ONE (10:46)
[2021-02-20] MEDS ORDERED: Sodium Chloride 0.9% 1,000 ML IV ONE (10:46)
[2021-02-20] MEDS ORDERED: fentaNYL 50 MCG/ML SDV IVPUSH ONE ×2 (10:48→13:15)
--- NOTE | 2021-02-20 10:57 | EDM.PDOC ---
ED HPI GENERAL MEDICAL PROBLEM - General Chief Complaint: Abdominal Pain Stated Complaint: side abdominal pain Time Seen by Provider: 02/20/21 10:23 Source of Information: Reports: Patient History Limitations: Reports: No Limitations - History of Present Illness INITIAL COMMENTS - FREE TEXT/NARRATIVE: Presents reporting a 2 to 3-day history of right lower quadrant pain. 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 That was treated with antibiotics and pain medication and resolved. In the last 2 days the same pain has recurred and has worsened. The pain is worse with any jolting movement. He has also been nauseated however that has been a continuous problem since a complicated cervical CHRISTINA 1 month ago. He has not been vomiting. BMs normal including today. No fever, dysuria. Right Lower Abdomen Pain Score (Numeric/FACES): 6 - Related Data Allergies Allergy/AdvReac Type Severity Reaction Status Date / Time No Known Allergies Allergy Verified 02/20/21 10:35 Home Meds: Home Meds Acetaminophen 500 mg PO Q6HR 10/13/16 [History] Cetirizine [ZyrTEC] 10 mg PO DAILY 10/13/16 [History] Cholecalciferol (Vitamin D3) [Vitamin D] 5,000 unit PO DAILY 10/13/16 [History] Colestipol HCl [Colestipol] 2 gm PO DAILY 10/13/16 [History] Fish Oil/[place]-3 Fatty Acids [Fish Oil 1,000 MG] 1 gm PO DAILY 10/13/16 [History] polyethylene glycoL 3350 [Polyethylene Glycol 3350] 17 gm PO ASDIRECTED 10/13/16 [History] Ketamine [Ketalar] 200 mg DEVONTE DAILY PRN 03/25/17 [History] Baclofen 1 tab PO BID 08/18/20 [History] Cetirizine HCl [Zyrtec] 1 tab PO DAILY 08/18/20 [History] Hydrocortisone Acetate 25 mg RC BID 7 Days #14 supp.rect 08/18/20 [Rx] Acetaminophen/oxyCODONE [Percocet 325-10 MG] 1 tab PO Q4H PRN #20 tab 12/24/20 [Rx] Amoxicillin/Potassium Clav [Augmentin 875-125 Tablet] 1 each PO BID #14 tablet 12/24/20 [Rx] Ibuprofen [Motrin] 600 mg PO Q6H PRN #20 tab 12/24/20 [Rx] oxyCODONE HCl/Acetaminophen [Percocet 10-325 mg Tablet] 1 each PO Q4H #20 tablet 12/24/20 [Rx] Hydrocodone/Acetaminophen [HYDROcodone-Acetaminophen 7.5-325 MG] 1 each PO Q6HR PRN #15 tablet 02/20/21 [Rx] Past Medical History HEENT History: Reports: None, Other (See Below) Other HEENT History: Lee's Esophagus Cardiovascular History: Reports: None Respiratory History: Reports: None Gastrointestinal History: Reports: Cholelithiasis, GERD, Hiatal Hernia Genitourinary History: Reports: None Musculoskeletal History: Reports: Back Pain, Chronic, Fracture, None Other Musculoskeletal History: lower back fusion Neurological History: Reports: None Psychiatric History: Reports: None Endocrine/Metabolic History: Reports: None Hematologic History: Reports: None Immunologic History: Reports: None Oncologic (Cancer) History: Reports: None Dermatologic History: Reports: None - Infectious Disease History Infectious Disease History: Reports: Chicken Pox - Past Surgical History Head Surgeries/Procedures: Reports: None HEENT Surgical History: Reports: None GI Surgical History: Reports: Appendectomy, Cholecystectomy, Esophageal Dilatation, Bonnie Fundoplication Male Surgical History: Reports: None Other Musculoskeletal Surgeries/Procedures:: left foot fracture Social & Family History - Family History Family Medical History: No Pertinent Family History - Caffeine Use Caffeine Use: Reports: Coffee - Living Situation & Occupation Living situation: Reports: Occupation: Employed ED ROS GENERAL - Review of Systems Review Of Systems: Comprehensive ROS is negative, except as noted in HPI. ED EXAM, GI/ABD - Physical Exam Exam: See Below Exam Limited By: No Limitations General Appearance: Alert, Mild Distress (due to pain) Ears: Normal External Exam Nose: Normal Inspection Throat/Mouth: Normal Inspection Head: Atraumatic, Normocephalic Neck: Normal Inspection Respiratory/Chest: No Respiratory Distress, Lungs Clear, Normal Breath Sounds Cardiovascular: Normal Peripheral Pulses, Tachycardia GI/Abdominal Exam: Soft, No Distention, Other (Exquisite tenderness right lower quadrant) Back Exam: Normal Inspection Extremities: Normal Inspection Neurological: Alert, Oriented Psychiatric: Normal Affect, Normal Mood Skin Exam: Warm, Dry, Intact, Normal Color, No Rash Course - Vital Signs Last Recorded V/S: Last Vital Signs Temp 35.7 C L 11/02/21 10:29 Pulse 86 02/20/21 13:11 Resp 19 02/20/21 10:29 BP 117/70 02/20/21 13:11 Pulse Ox 98 02/20/21 13:11 - Orders/Labs/Meds Orders: Active Orders 24 hr Category Date Time Status CULTURE BLOOD [BC] Stat Lab 02/20/21 10:46 Ordered Labs: Laboratory Tests 02/20/21 02/20/21 02/20/21 Range/Units 10:30 10:30 10:55 WBC 5.98 (4.0-11.0) K/uL RBC 5.39 (4.50-5.90) M/uL Hgb 16.7 (13.0-17.0) g/dL Hct 46.8 (38.0-50.0) % MCV 86.8 (80.0-98.0) fL MCH 31.0 (27.0-32.0) pg MCHC 35.7 (31.0-37.0) g/dL RDW Std Deviation 38.7 (28.0-62.0) fl RDW Coeff of [place] 12 (11.0-15.0) % Plt Count 281 (150-400) K/uL MPV 10.10 (7.40-12.00) fL Neut % (Auto) 56.3 (48.0-80.0) % Lymph % (Auto) 33.8 (16.0-40.0) % [place] % (Auto) 6.5 (0.0-15.0) % Eos % (Auto) 2.7 (0.0-7.0) % Baso % (Auto) 0.7 (0.0-1.5) % Neut # (Auto) 3.4 (1.4-5.7) K/uL Lymph # (Auto) 2.0 (0.6-2.4) K/uL [place] # (Auto) 0.4 (0.0-0.8) K/uL Eos # (Auto) 0.2 (0.0-0.7) K/uL Baso # (Auto) 0.0 (0.0-0.1) K/uL Nucleated RBC % 0.0 /100WBC Nucleated RBCs # 0 K/uL Sodium 141 (136-148) mmol/L Potassium 4.0 (3.5-5.1) mmol/L Chloride 102 (98-107) mmol/L Carbon Dioxide 23.3 (21.0-32.0) mmol/L BUN 12 (7.0-18.0) mg/dL Creatinine 1.1 (0.8-1.3) mg/dL Est Cr Clr Drug Dosing TNP Estimated GFR (MDRD) > 60.0 ml/min Glucose 145 H (74-106) mg/dL Lactic Acid (0.4-2.0) mmol/L Calcium 8.8 (8.5-10.1) mg/dL Total Bilirubin 0.6 (0.2-1.0) mg/dL AST 23 (15-37) IU/L ALT 64 H (14-63) IU/L Alkaline Phosphatase 80 (46-116) U/L Total Protein 7.9 (6.4-8.2) g/dL Albumin 4.4 (3.4-5.0) g/dL Globulin 3.5 (2.6-4.0) g/dL Albumin/Globulin Ratio 1.3 (0.9-1.6) Urine Color YELLOW Urine Appearance CLEAR Urine pH 6.0 (5.0-8.0) Ur Specific [place] 1.010 (1.001-1.035) Urine Protein NEGATIVE (NEGATIVE) mg/dL Urine Glucose (UA) NEGATIVE (NEGATIVE) mg/dL Urine Ketones NEGATIVE (NEGATIVE) mg/dL Urine Occult Blood NEGATIVE (NEGATIVE) Urine Nitrite NEGATIVE (NEGATIVE) Urine Bilirubin NEGATIVE (NEGATIVE) Urine Urobilinogen 0.2 (<2.0) EU/dL Ur Leukocyte Esterase NEGATIVE (NEGATIVE) Urine RBC 0-1 (0-2/HPF) Urine WBC 0-1 (0-5/HPF) Ur Epithelial Cells RARE (NONE-FEW) Urine Bacteria RARE (NEGATIVE) 02/20/21 Range/Units 11:05 WBC (4.0-11.0) K/uL RBC (4.50-5.90) M/uL Hgb (13.0-17.0) g/dL Hct (38.0-50.0) % MCV (80.0-98.0) fL MCH (27.0-32.0) pg MCHC (31.0-37.0) g/dL RDW Std Deviation (28.0-62.0) fl RDW Coeff of [place] (11.0-15.0) % Plt Count (150-400) K/uL MPV (7.40-12.00) fL Neut % (Auto) (48.0-80.0) % Lymph % (Auto) (16.0-40.0) % [place] % (Auto) (0.0-15.0) % Eos % (Auto) (0.0-7.0) % Baso % (Auto) (0.0-1.5) % Neut # (Auto) (1.4-5.7) K/uL Lymph # (Auto) (0.6-2.4) K/uL [place] # (Auto) (0.0-0.8) K/uL Eos # (Auto) (0.0-0.7) K/uL Baso # (Auto) (0.0-0.1) K/uL Nucleated RBC % /100WBC Nucleated RBCs # K/uL Sodium (136-148) mmol/L Potassium (3.5-5.1) mmol/L Chloride (98-107) mmol/L Carbon Dioxide (21.0-32.0) mmol/L BUN (7.0-18.0) mg/dL Creatinine (0.8-1.3) mg/dL Est Cr Clr Drug Dosing Estimated GFR (MDRD) ml/min Glucose (74-106) mg/dL Lactic Acid 1.8 (0.4-2.0) mmol/L Calcium (8.5-10.1) mg/dL Total Bilirubin (0.2-1.0) mg/dL AST (15-37) IU/L ALT (14-63) IU/L Alkaline Phosphatase (46-116) U/L Total Protein (6.4-8.2) g/dL Albumin (3.4-5.0) g/dL Globulin (2.6-4.0) g/dL Albumin/Globulin Ratio (0.9-1.6) Urine Color Urine Appearance Urine pH (5.0-8.0) Ur Specific [place] (1.001-1.035) Urine Protein (NEGATIVE) mg/dL Urine Glucose (UA) (NEGATIVE) mg/dL Urine Ketones (NEGATIVE) mg/dL Urine Occult Blood (NEGATIVE) Urine Nitrite (NEGATIVE) Urine Bilirubin (NEGATIVE) Urine Urobilinogen (<2.0) EU/dL Ur Leukocyte Esterase (NEGATIVE) Urine RBC (0-2/HPF) Urine WBC (0-5/HPF) Ur Epithelial Cells (NONE-FEW) Urine Bacteria (NEGATIVE) Meds: Medications Discontinued Medications Generic Name Dose Route Start Last Admin Trade Name Freq PRN Reason Stop Dose Admin Fentanyl 50 mcg 02/20/21 10:48 02/20/21 11:04 Fentanyl 50 Mcg/Ml Sdv IVPUSH 02/20/21 10:49 50 mcg ONETIME ONE Administration Fentanyl 50 mcg 02/20/21 13:15 02/20/21 13:20 Fentanyl 50 Mcg/Ml Sdv IVPUSH 02/20/21 13:16 50 mcg ONETIME ONE Administration Sodium Chloride 1,000 mls @ 999 mls/hr 02/20/21 10:46 02/20/21 11:01 Normal Saline IV 02/20/21 11:46 999 mls/hr STAT ONE Administration Ondansetron HCl 4 mg 02/20/21 10:46 02/20/21 11:04 Ondansetron 4 Mg/2 Ml Sdv IVPUSH 02/20/21 10:47 4 mg ONETIME ONE Administration - Re-Assessments/Exams Free Text/Narrative Re-Assessment/Exam: 02/20/21 13:[address] His CT imaging and lab work is essentially normal. The patient states that he has several bulging disc in the lumbar spine and has been under treatment at the pain clinic with nasal naltrexone and topicals. His pain specialist has left her practice. He will follow-up for referral to another pain clinic by his primary. No rash in the back or right flank. Departure - Departure Time of Disposition: 13:43 Disposition: Home, Self-Care 01 Condition: Good Clinical Impression: Lumbar radiculopathy - Discharge Information Prescriptions: Hydrocodone/Acetaminophen [HYDROcodone-Acetaminophen 7.5-325 MG] 1 each PO Q6HR PRN #15 tablet PRN Reason: Pain (Severe 7-10) Referrals: Kwadwo Ryan MD [Primary Care Provider] - Forms: ED Department Discharge Additional Instructions: The following information is given to patients seen in the emergency department who are being discharged to home. This information is to outline your options for follow-up care. We provide all patients seen in our emergency department with a follow-up referral. The need for follow-up, as well as the timing and circumstances, are variable depending upon the specifics of your emergency department visit. If you don't have a primary care physician on staff, we will provide you with a referral. We always advise you to contact your personal physician following an emergency department visit to inform them of the circumstance of the visit and for follow-up with them and/or the need for any referrals to a consulting specialist. The emergency department will also refer you to a specialist when appropriate. This referral assures that you have the opportunity for follow-up care with a specialist. All of these measure are taken in an effort to provide you with optimal care, which includes your follow-up. Under all circumstances we always encourage you to contact your private ehsan pena who remains a resource for coordinating your care. When calling for follow-up care, please make the office aware that this follow-up is from your recent emergency room visit. If for any reason you are refused follow-up, please contact the [facility] Emergency Department at and asked to speak to the emergency department charge nurse. [address] [address] 1. Follow-up with your primary provider for pain clinic referral. 2. Hydrocodone every 6 hours as needed for severe pain otherwise use your current regimen. Sepsis Event Note (ED) - Evaluation Sepsis Screening Result: No Definite Risk - Focused Exam Vital Signs: Vital Signs Temp Pulse Resp BP Pulse Ox 02/20/21 13:11 86 117/70 98 02/20/21 12:15 83 107/73 99 02/20/21 11:15 94 119/77 99 02/20/21 10:29 35.7 C L 129 H 19 129/90 96 - My Orders Last 24 Hours: My Active Orders 02/20/21 10:46 CULTURE BLOOD [BC] Stat - Assessment/Plan Last 24 Hours: My Active Orders 02/20/21 10:46 CULTURE BLOOD [BC] Stat
[2021-02-20 11:26] LABS: BLOOD UREA NITROGEN,BUN 12 mg/dL (7.0-18.0); CARBON DIOXIDE,CO2 23.3 mmol/L (21.0-32.0); CHLORIDE,CL 102 mmol/L (98-107); GLUCOSE RANDOM 145 mg/dL (74-106); SODIUM,NA 141 mmol/L (136-148)
[2021-02-20 13:13] VITALS: BP 117/70; PULSE 86
--- NOTE | 2021-02-20 13:25 | CT ---
Indication: Right-sided abdominal pain, history of omental infarct Technique: Contrast enhanced axial CT imaging through the abdomen and pelvis. Oral Isovue 370 contrast agent was administered intravenously. Sagittal and coronal reconstructions are provided. Comparison: CT abdomen pelvis with contrast 12/24/2020 Findings: There is decreased attenuation of the liver parenchyma, consistent with steatosis. Cholecystectomy clips are noted. No abnormalities are demonstrated relating to the spleen, pancreas, adrenal glands, and kidneys. There is no nephrolithiasis or hydronephrosis. The portal vein is patent. The abdominal aorta is normal in caliber. There is no abdominal or pelvic lymphadenopathy. The urinary bladder is unremarkable. The stomach and duodenum are unremarkable. There is no small bowel wall thickening or abnormal distention. Appendectomy changes are noted. There is no colonic wall thickening or mesenteric edema. Laminectomy and instrumented posterior fusion is noted L5-S1. The osseous structures are otherwise unremarkable. The included lung bases are clear. Impression: No acute abnormality demonstrated in the abdomen and pelvis. Please note that all CT scans at this facility use dose modulation, iterative reconstruction, and/or weight-based dosing when appropriate to reduce radiation dose to as low as reasonably achievable. Dictated by Maria Cárdenas MD @ 02/20/2021 1:23:11 PM (Electronically Signed)
[2021-02-20] MEDS ORDERED: Iopamidol 755 MG/ML 500 ML Multipack Bottle IVPUSH STA (17:06)
== END 2021-02-20 14:00 | disposition home or self-care (01) ==
LOC: MW.ED 10:17
DX: M54.16 Radiculopathy, lumbar region (principal)
CPT/HCPCS: 36415; 74177; 80053; 81001; 83605; 85025; 87040; 96374; 96375; 96376; 99284; J2405; J3010; J7030; Q9967

== ENCOUNTER 2021-07-08 02:59 | Emergency (ER) | payer OTHER ==
[2021-07-08] MEDS ORDERED: Albuterol/Ipratropium 3.0-0.5 MG/3 ML Neb Soln NEB ONE (03:12)
[2021-07-08] MEDS ORDERED: Sodium Chloride 0.9% 10 ML Syringe FLUSH PRN (03:12)
[2021-07-08] MEDS ORDERED: Sodium Chloride 0.9% 2.5 ML Syringe FLUSH PRN (03:12)
[2021-07-08] MEDS ORDERED: methylPREDNISolone Sodium Succinate 40 MG/1 ML SDV IVPUSH ONE (03:13)
[2021-07-08] MEDS ORDERED: Lactated Ringers 1,000 ML IV ONE (03:17)
[2021-07-08 03:41] LABS: BLOOD UREA NITROGEN,BUN 9 mg/dL (7.0-18.0); CARBON DIOXIDE,CO2 26.2 mmol/L (21.0-32.0); CHLORIDE,CL 103 mmol/L (98-107); GLUCOSE RANDOM 107 mg/dL (74-106); POTASSIUM,K 3.7 mmol/L (3.5-5.1); SODIUM,NA 142 mmol/L (136-148)
[2021-07-08] MEDS ORDERED: Ondansetron 4 MG/2 ML SDV IVPUSH ONE (03:44)
[2021-07-08] MEDS ORDERED: Albuterol 0.083% 2.5 MG/3 ML Neb Soln NEB ONE (03:44)
[2021-07-08] MEDS ORDERED: HYDROmorphone 1 MG/ML Syringe IVPUSH ONE (03:44)
[2021-07-08 04:03] LABS: CORONAVIRUS COVID-19 NAA NEGATIVE (NEGATIVE); INFLUENZA A NAA NEGATIVE (NEGATIVE); INFLUENZA B NAA NEGATIVE (NEGATIVE)
[2021-07-08] MEDS ORDERED: Albuterol 8 GM Inhaler INH ONE (04:11)
[2021-07-08 04:18] VITALS: BP 111/71; PULSE 95
== END 2021-07-08 04:59 | disposition home or self-care (01) ==
LOC: MW.ED 02:59
DX: J40 Bronchitis, not specified as acute or chronic (principal); K21.9 Gastro-esophageal reflux disease without esophagitis; Z20.822 Contact with and (suspected) exposure to COVID-19
CPT/HCPCS: 0240U; 36415; 71045; 80053; 84484; 85025; 85379; 93005; 96374; 96375; 99284; A9270; J1170; J2405; J2920; J3360; J7120; 93010; J7620-GY

== ENCOUNTER 2021-08-19 18:21 | Emergency (ER) | payer OTHER ==
[2021-08-19] MEDS ORDERED: Ondansetron 4 MG/2 ML SDV IVPUSH ONE (18:48)
[2021-08-19] MEDS ORDERED: Sodium Chloride 0.9% 10 ML Syringe FLUSH PRN (18:48)
[2021-08-19] MEDS ORDERED: Sodium Chloride 0.9% 1,000 ML IV ONE (18:48)
[2021-08-19] MEDS ORDERED: fentaNYL 50 MCG/ML SDV IVPUSH ONE (18:48)
[2021-08-19] MEDS ORDERED: Sodium Chloride 0.9% 2.5 ML Syringe FLUSH PRN (18:48)
[2021-08-19 20:03] LABS: BLOOD UREA NITROGEN,BUN 12 mg/dL (7.0-18.0); CARBON DIOXIDE,CO2 23.4 mmol/L (21.0-32.0); CHLORIDE,CL 104 mmol/L (98-107); GLUCOSE RANDOM 97 mg/dL (74-106); POTASSIUM,K 3.7 mmol/L (3.5-5.1); SODIUM,NA 142 mmol/L (136-148)
[2021-08-19] MEDS ORDERED: Acetaminophen/HYDROcodone 325-5 MG Tab PO ONE (20:25)
[2021-08-19] MEDS ORDERED: Acetaminophen/HYDROcodone 325-10 MG Tab PO ONE ×2 (20:34→20:36)
[2021-08-20 03:44] VITALS: BP 132/71; PULSE 77
== END 2021-08-19 20:50 | disposition home or self-care (01) ==
LOC: MW.ED 18:21
DX: M54.50 Low back pain, unspecified (principal)
CPT/HCPCS: 36415; 80053; 81003; 83735; 85025; 85652; 93005; 96374; 96375; 99283; A9270; J2405; J3010; J3490; J7030

== ENCOUNTER 2022-02-06 17:48 | Emergency (ER) | payer OTHER ==
[2022-02-06] MEDS ORDERED: HYDROmorphone 1 MG/ML Syringe IM ONE (18:18)
[2022-02-06] MEDS ORDERED: Ondansetron 4 MG Tab.DIS PO ONE (18:19)
[2022-02-06 19:08] VITALS: BP 133/85; PULSE 71
== END 2022-02-06 19:08 | disposition home or self-care (01) ==
LOC: MW.ED 17:48
DX: M54.50 Low back pain, unspecified (principal); G89.29 Other chronic pain; K21.9 Gastro-esophageal reflux disease without esophagitis; Z79.899 Other long term (current) drug therapy
CPT/HCPCS: 96372; 99283; A9270; J1170

== ENCOUNTER 2022-03-25 17:16 | Emergency (ER) | payer OTHER ==
[2022-03-25] MEDS ORDERED: Sodium Chloride 0.9% 1,000 ML IV ONE (22:08)
[2022-03-25] MEDS ORDERED: Sodium Chloride 0.9% 2.5 ML Syringe FLUSH PRN (22:08)
[2022-03-25] MEDS ORDERED: Ketorolac 30 MG/ML SDV IVPUSH ONE (22:08)
[2022-03-25] MEDS ORDERED: Sodium Chloride 0.9% 10 ML Syringe FLUSH PRN (22:08)
[2022-03-25 22:54] LABS: CARBON DIOXIDE,CO2 26.8 mmol/L (21.0-32.0); POTASSIUM,K 3.6 mmol/L (3.5-5.1)
[2022-03-25 23:24] LABS: CORONAVIRUS COVID-19 NAA NEGATIVE (NEGATIVE); INFLUENZA A NAA NEGATIVE (NEGATIVE); INFLUENZA B NAA NEGATIVE (NEGATIVE); RESPIRATORY SYNCYTIAL VIR NAA NEGATIVE (NEGATIVE)
[2022-03-26 00:13] VITALS: BP 132/68; PULSE 68
== END 2022-03-26 00:12 | disposition home or self-care (01) ==
LOC: MW.ED 17:16
DX: B34.9 Viral infection, unspecified (principal); Z88.8 Allergy status to other drugs, medicaments and biological substances; Z79.899 Other long term (current) drug therapy; Z90.49 Acquired absence of other specified parts of digestive tract; Z20.822 Contact with and (suspected) exposure to COVID-19
CPT/HCPCS: 0241U; 36415; 71046; 80053; 81003; 85025; 96361; 96374; 99283; J1885; J3490; J7030

== ENCOUNTER 2022-07-22 15:53 | Emergency (ER) | payer OTHER ==
[2022-07-22] MEDS ORDERED: HYDROmorphone 1 MG/ML Syringe IVPUSH ONE ×2 (16:04→18:39)
[2022-07-22] MEDS ORDERED: Lactated Ringers 1,000 ML IV SCH (16:15)
[2022-07-22] MEDS ORDERED: Iopamidol 755 MG/ML 500 ML Multipack Bottle IVPUSH STA (17:00)
[2022-07-22 17:12] LABS: CARBON DIOXIDE,CO2 22.9 mmol/L (21.0-32.0); POTASSIUM,K 3.7 mmol/L (3.5-5.1)
[2022-07-22] MEDS ORDERED: Pantoprazole 40 MG in Sodium Chloride 0.9% 10 ML IVPUSH ONE (18:39)
[2022-07-22] MEDS ORDERED: Alum Hydro/Mag Hydro/Simeth XS 15 ML, Lidocaine 2% 5 ML PO ONE ×2 (18:39)
[2022-07-22 20:41] VITALS: BP 145/96; PULSE 76
== END 2022-07-22 20:41 | disposition home or self-care (01) ==
LOC: MW.ED 15:53
DX: K22.4 Dyskinesia of esophagus (principal); Z88.8 Allergy status to other drugs, medicaments and biological substances; Z90.49 Acquired absence of other specified parts of digestive tract; Z79.899 Other long term (current) drug therapy
CPT/HCPCS: 36415; 70498; 71045; 80053; 83690; 84484; 85025; 85610; 85730; 86850; 86900; 86901; 93005; 96361; 96374; 96375; 96376; 99284; A9270; C9113; J1170; J3490; J7120; Q9967; 93010

== ENCOUNTER 2022-08-01 15:42 | Emergency (ER) | payer OTHER ==
[2022-08-01] MEDS ORDERED: Sodium Chloride 0.9% 1,000 ML IV STA (16:22)
[2022-08-01] MEDS ORDERED: HYDROmorphone 1 MG/ML Syringe IVPUSH STA ×2 (16:22→17:03)
[2022-08-01] MEDS ORDERED: Sodium Chloride 0.9% 10 ML Syringe FLUSH PRN (16:23)
[2022-08-01] MEDS ORDERED: Sodium Chloride 0.9% 2.5 ML Syringe FLUSH PRN (16:23)
[2022-08-01] MEDS ORDERED: Ondansetron 4 MG/2 ML SDV IVPUSH STA (16:24)
[2022-08-01 17:22] LABS: CARBON DIOXIDE,CO2 23.9 mmol/L (21.0-32.0); POTASSIUM,K 3.7 mmol/L (3.5-5.1)
[2022-08-01] MEDS ORDERED: Alum Hydro/Mag Hydro/Simeth XS 15 ML, Lidocaine 2% 5 ML PO ONE ×2 (17:31)
[2022-08-01] MEDS ORDERED: Pantoprazole 80 MG in Sodium Chloride 0.9% 10 ML IVPUSH STA (19:08)
[2022-08-01 19:22] VITALS: BP 140/88; PULSE 63
== END 2022-08-01 19:38 | disposition home or self-care (01) ==
LOC: MW.ED 15:42
DX: K22.4 Dyskinesia of esophagus (principal); K21.9 Gastro-esophageal reflux disease without esophagitis; Z90.49 Acquired absence of other specified parts of digestive tract; Z88.5 Allergy status to narcotic agent; Z79.899 Other long term (current) drug therapy
CPT/HCPCS: 36415; 80053; 84484; 85025; 85379; 93005; 96361; 96374; 96375; 99285; A9270; C9113; J1170; J2405; J3360; J3490; J7030; 93010; 99284

== ENCOUNTER 2022-10-31 16:01 | Emergency (ER) | payer OTHER ==
[2022-10-31 16:25] VITALS: BP 140/96; PULSE 86
== END 2022-10-31 19:30 | disposition home or self-care (01) ==
LOC: MW.ED 16:01
DX: R15.9 Full incontinence of feces (principal); K21.9 Gastro-esophageal reflux disease without esophagitis; Z79.899 Other long term (current) drug therapy; Z88.8 Allergy status to other drugs, medicaments and biological substances
CPT/HCPCS: 72072; 72072-26; 72100; 72100-26; 73521; 73521-26; 99282; 99284

== ENCOUNTER 2022-11-17 16:06 | Emergency (ER) | payer OTHER ==
[2022-11-17] MEDS ORDERED: Sodium Chloride 0.9% 1,000 ML IV ONE (16:29)
[2022-11-17] MEDS ORDERED: Ketorolac 30 MG/ML SDV IVPUSH ONE (16:31)
[2022-11-17] MEDS ORDERED: Metoclopramide 10 MG/2 ML SDV IVPUSH ONE (16:31)
[2022-11-17] MEDS ORDERED: diphenhydrAMINE 50 MG/ML SDV IVPUSH ONE (16:31)
[2022-11-17 16:49] LABS: BASOPHILS ABSOLUTE AUTO 0.1 K/uL (0.0-0.1); BASOPHILS PERCENT AUTO 1.1 % (0.0-1.5); EOSINOPHILS ABSOLUTE AUTO 0.2 K/uL (0.0-0.7); EOSINOPHILS PERCENT AUTO 3.4 % (0.0-7.0); HEMATOCRIT 40.7 % (38.0-50.0); HEMOGLOBIN 14.7 g/dL (13.0-17.0); LYMPHOCYTES ABSOLUTE AUTO 2.1 K/uL (0.6-2.4); LYMPHOCYTES PERCENT AUTO 37.1 % (16.0-40.0); MEAN CORPUSCULAR HEMOGLOBIN 31.2 pg (27.0-32.0); MEAN CORPUSCULAR HGB CONC 36.1 g/dL (31.0-37.0); MEAN CORPUSCULAR VOLUME 86.4 fL (80.0-98.0); MONOCYTES ABSOLUTE AUTO 0.4 K/uL (0.0-0.8); MONOCYTES PERCENT AUTO 7.7 % (0.0-15.0); NEUTROPHILS ABSOLUTE AUTO 2.9 K/uL (1.4-5.7); NEUTROPHILS PERCENT AUTO 50.7 % (48.0-80.0); NRBC ABSOLUTE 0 K/uL; PLATELET COUNT,PLT 262 K/uL (150-400); RED BLOOD CELL COUNT 4.71 M/uL (4.50-5.90); WHITE BLOOD CELL COUNT,WBC 5.61 K/uL (4.0-11.0)
[2022-11-17 17:03] LABS: INR 0.99 (0.86-1.11); PTT,PARTIAL THROMBOPLSTIN TIME 26.1 SEC (23.9-30.7)
[2022-11-17 17:09] LABS: A/G RATIO 1.5 (0.9-1.6); ALBUMIN 4.2 g/dL (3.4-5.0); BILIRUBIN TOTAL 0.2 mg/dL (0.2-1.0); CALCIUM 8.5 mg/dL (8.5-10.1); CREATININE 0.8 mg/dL (0.8-1.3); EST CRCL DRUG DOSING (CG) 117.56 mL/min; POTASSIUM,K 3.9 mmol/L (3.5-5.1)
[2022-11-17] MEDS ORDERED: Iopamidol 755 MG/ML 500 ML Multipack Bottle IVPUSH STA (17:39)
[2022-11-17] MEDS ORDERED: HYDROmorphone 1 MG/ML Syringe IVPUSH ONE (18:07)
[2022-11-17] MEDS ORDERED: SUMAtriptan 6 MG/0.5 ML SDV SUBCUT ONE (18:08)
[2022-11-17 19:20] VITALS: BP 139/90; PULSE 55
== END 2022-11-17 19:18 | disposition home or self-care (01) ==
LOC: MW.ED 16:06
DX: R51.9 Headache, unspecified (principal); K21.9 Gastro-esophageal reflux disease without esophagitis; Z88.8 Allergy status to other drugs, medicaments and biological substances; Z79.899 Other long term (current) drug therapy
CPT/HCPCS: 36415; 70450; 70496; 70498; 80053; 85025; 85610; 85730; 96361; 96372; 96374; 96375; 99284; J1170; J1200; J1885; J3030; J7030; Q9967

== ENCOUNTER 2023-01-28 13:02 | Emergency (ER) | payer OTHER ==
[2023-01-28] MEDS ORDERED: LORazepam 2 MG/ML SDV IVPUSH ONE (13:18)
[2023-01-28] MEDS ORDERED: Acetaminophen/oxyCODONE 325-10 MG Tab PO ONE (13:19)
[2023-01-28] MEDS ORDERED: Baclofen 10 MG Tab PO ONE (13:19)
[2023-01-28 13:50] LABS: BASOPHILS ABSOLUTE AUTO 0.06 K/uL (0.00-0.20); BASOPHILS PERCENT AUTO 0.8 % (0.0-1.0); EOSINOPHILS ABSOLUTE AUTO 0.14 K/uL (0.00-0.45); EOSINOPHILS PERCENT AUTO 1.9 % (0.0-6.0); HEMATOCRIT 45.3 % (42.0-52.0); HEMOGLOBIN 16.4 g/dL (14.0-18.0); IMMATURE GRAN ABSOLUTE AUTO 0.02 K/uL (0.00-0.05); IMMATURE GRAN PERCENT AUTO 0.3 % (0.0-0.4); LYMPHOCYTES PERCENT AUTO 25.9 % (24.0-44.0); MEAN CORPUSCULAR HEMOGLOBIN 31.1 pg (28.0-32.0); MEAN CORPUSCULAR HGB CONC 36.2 g/dL (32.0-36.0); MEAN PLATELET VOLUME 9.3 fL (9.4-12.4); MONOCYTES PERCENT AUTO 6.8 % (0.0-8.0); NEUTROPHILS ABSOLUTE AUTO 4.7 K/uL (1.8-7.7); NEUTROPHILS PERCENT AUTO 64.3 % (41.0-71.0); PLATELET COUNT,PLT 322 K/uL (150-400); RED BLOOD CELL COUNT 5.27 M/uL (4.52-5.90); WHITE BLOOD CELL COUNT,WBC 7.34 K/uL (3.9-11.3)
[2023-01-28 14:19] LABS: A/G RATIO 1.7 (0.9-1.6); BILIRUBIN TOTAL 0.6 mg/dL (0.2-1.0); CALCIUM 9.3 mg/dL (8.5-10.1); CARBON DIOXIDE,CO2 23.2 mmol/L (21.0-32.0); EST CRCL DRUG DOSING (CG) 94.05 mL/min; POTASSIUM,K 3.6 mmol/L (3.5-5.1); PROTEIN TOTAL,TP 7.9 g/dL (6.4-8.2)
[2023-01-28] MEDS ORDERED: Haloperidol Lactate 5 MG/ML SDV IM ONE (14:38)
[2023-01-28 16:41] VITALS: BP 122/89; PULSE 82
== END 2023-01-28 16:30 | disposition home or self-care (01) ==
LOC: MW.ED 13:02
DX: F41.9 Anxiety disorder, unspecified (principal); Z88.8 Allergy status to other drugs, medicaments and biological substances; Z79.899 Other long term (current) drug therapy
CPT/HCPCS: 36415; 80053; 85025; 96372; 96374; 99284; A9270; J1630; J2060

== ENCOUNTER 2024-03-24 14:29 | Emergency (ER) | payer OTHER ==
[2024-03-24] MEDS: Ondansetron 4 MG/2 ML SDV IVPUSH STA (16:12)
[2024-03-24] MEDS: Ketorolac 30 MG/ML SDV IVPUSH STA (16:13)
[2024-03-24] MEDS: Morphine 4 MG/ML Syringe IVPUSH STA ×2 (16:13→18:49)
[2024-03-24 16:25] LABS: BASOPHILS ABSOLUTE AUTO 0.05 K/uL (0.00-0.20); BASOPHILS PERCENT AUTO 0.6 % (0.0-1.0); EOSINOPHILS ABSOLUTE AUTO 0.11 K/uL (0.00-0.45); EOSINOPHILS PERCENT AUTO 1.3 % (0.0-6.0); HEMATOCRIT 40.7 % (42.0-52.0); HEMOGLOBIN 14.8 g/dL (14.0-18.0); IMMATURE GRAN ABSOLUTE AUTO 0.03 K/uL (0.00-0.05); IMMATURE GRAN PERCENT AUTO 0.4 % (0.0-0.4); LYMPHOCYTES ABSOLUTE AUTO 2.37 K/uL (1.00-4.80); LYMPHOCYTES PERCENT AUTO 28.3 % (24.0-44.0); MEAN CORPUSCULAR HEMOGLOBIN 30.7 pg (28.0-32.0); MEAN CORPUSCULAR HGB CONC 36.4 g/dL (32.0-36.0); MEAN CORPUSCULAR VOLUME 84.4 fL (83.0-99.0); MEAN PLATELET VOLUME 9.1 fL (9.4-12.4); MONOCYTES ABSOLUTE AUTO 0.53 K/uL (0.00-0.80); MONOCYTES PERCENT AUTO 6.3 % (0.0-8.0); NEUTROPHILS ABSOLUTE AUTO 5.28 K/uL (1.80-7.70); NEUTROPHILS PERCENT AUTO 63.1 % (41.0-71.0); PLATELET COUNT,PLT 294 K/uL (150-400); RED BLOOD CELL COUNT 4.82 M/uL (4.52-5.90); WHITE BLOOD CELL COUNT,WBC 8.37 K/uL (3.9-11.3)
[2024-03-24 16:54] LABS: A/G RATIO 1.5 (0.9-1.6); ALBUMIN 4.4 g/dL (3.4-5.0); BILIRUBIN TOTAL 0.5 mg/dL (0.2-1.0); CALCIUM 9.4 mg/dL (8.5-10.1); CARBON DIOXIDE,CO2 27.4 mmol/L (21.0-32.0); EST CRCL DRUG DOSING (CG) 92.15 mL/min; POTASSIUM,K 3.8 mmol/L (3.5-5.1); PROTEIN TOTAL,TP 7.4 g/dL (6.4-8.2)
[2024-03-24] MEDS: Iopamidol 755 MG/ML 500 ML Multipack Bottle IVPUSH STA (18:27)
[2024-03-24 18:32] LABS: APPEARANCE,URINE CLEAR; BILIRUBIN,URINE NEGATIVE (NEGATIVE); COLOR,URINE YELLOW; GLUCOSE,URINE NEGATIVE (NEGATIVE); KETONES,URINE NEGATIVE (NEGATIVE); LEUKOCYTE ESTERASE,URINE NEGATIVE (NEGATIVE); NITRITE,URINE NEGATIVE (NEGATIVE); OCCULT BLOOD,URINE NEGATIVE (NEGATIVE); PROTEIN,URINE NEGATIVE (NEGATIVE); UROBILINOGEN,URINE 0.2 EU/dL (<2.0)
[2024-03-24 19:33] VITALS: BP 111/85; PULSE 84
== END 2024-03-24 19:32 | disposition home or self-care (01) ==
LOC: MW.ED 14:29
DX: R10.31 Right lower quadrant pain (principal); Z75.8 Other problems related to medical facilities and other health care; Z88.8 Allergy status to other drugs, medicaments and biological substances; Z79.899 Other long term (current) drug therapy; Z90.49 Acquired absence of other specified parts of digestive tract
CPT/HCPCS: 36415; 74177; 80053; 81003; 83690; 85025; 96374; 96375; 96376; 99284; J2270; J2405; Q9967

== ENCOUNTER 2024-08-03 09:36 | Emergency (ER) | payer OTHER ==
[2024-08-03 09:52] VITALS: BP 126/97; PULSE 93
[2024-08-03 10:48] LABS: BASOPHILS ABSOLUTE AUTO 0.05 K/uL (0.00-0.20); EOSINOPHILS ABSOLUTE AUTO 0.14 K/uL (0.00-0.45); EOSINOPHILS PERCENT AUTO 2.8 % (0.0-6.0); HEMATOCRIT 46.1 % (42.0-52.0); HEMOGLOBIN 16.1 g/dL (14.0-18.0); IMMATURE GRAN ABSOLUTE AUTO 0.03 K/uL (0.00-0.05); IMMATURE GRAN PERCENT AUTO 0.6 % (0.0-0.4); LYMPHOCYTES ABSOLUTE AUTO 1.39 K/uL (1.00-4.80); LYMPHOCYTES PERCENT AUTO 27.5 % (24.0-44.0); MEAN CORPUSCULAR HEMOGLOBIN 30.1 pg (28.0-32.0); MEAN CORPUSCULAR HGB CONC 34.9 g/dL (32.0-36.0); MEAN CORPUSCULAR VOLUME 86.2 fL (83.0-99.0); MEAN PLATELET VOLUME 9.4 fL (9.4-12.4); MONOCYTES ABSOLUTE AUTO 0.29 K/uL (0.00-0.80); MONOCYTES PERCENT AUTO 5.7 % (0.0-8.0); NEUTROPHILS ABSOLUTE AUTO 3.15 K/uL (1.80-7.70); NEUTROPHILS PERCENT AUTO 62.4 % (41.0-71.0); PLATELET COUNT,PLT 274 K/uL (150-400); RED BLOOD CELL COUNT 5.35 M/uL (4.52-5.90); WHITE BLOOD CELL COUNT,WBC 5.05 K/uL (3.9-11.3)
[2024-08-03] MEDS: Sodium Chloride 0.9% 1,000 ML IV ONE (10:57)
[2024-08-03] MEDS: Ketorolac 30 MG/ML SDV IVPUSH ONE (10:57)
[2024-08-03] MEDS: Ondansetron 4 MG/2 ML SDV IVPUSH ONE (10:57)
[2024-08-03] MEDS: diphenhydrAMINE 50 MG/ML SDV IVPUSH ONE (11:03)
[2024-08-03 11:17] LABS: A/G RATIO 1.5 (0.9-1.6); ALANINE AMINOTRANSFERASE,ALT 38 IU/L (14-63); ALBUMIN 4.9 g/dL (3.4-5.0); ALKALINE PHOSPHATASE 85 U/L (46-116); ASPARTATE AMNIOTRANSFERASE,AST 21 IU/L (15-37); BILIRUBIN TOTAL 0.5 mg/dL (0.2-1.0); BLOOD UREA NITROGEN,BUN 12 mg/dL (7.0-18.0); CALCIUM 9.8 mg/dL (8.5-10.1); CARBON DIOXIDE,CO2 29.2 mmol/L (21.0-32.0); CHLORIDE,CL 102 mmol/L (98-107); CREATININE 0.9 mg/dL (0.8-1.3); GLUCOSE RANDOM 101 mg/dL (74-106); MAGNESIUM 2.3 mg/dL (1.8-2.4); POTASSIUM,K 4.5 mmol/L (3.5-5.1); PROTEIN TOTAL,TP 8.1 g/dL (6.4-8.2); SODIUM,NA 139 mmol/L (136-148)
[2024-08-03 11:18] LABS: ESTIMATED GFR 109 mL/min (>60)
[2024-08-03 11:58] LABS: APPEARANCE,URINE CLEAR; BILIRUBIN,URINE NEGATIVE (NEGATIVE); GLUCOSE,URINE NEGATIVE (NEGATIVE); KETONES,URINE NEGATIVE (NEGATIVE); LEUKOCYTE ESTERASE,URINE NEGATIVE (NEGATIVE); NITRITE,URINE NEGATIVE (NEGATIVE); OCCULT BLOOD,URINE NEGATIVE (NEGATIVE); PROTEIN,URINE NEGATIVE (NEGATIVE); UROBILINOGEN,URINE 0.2 EU/dL (<2.0)
[2024-08-03 12:30] LABS: COLOR,URINE STRAW
== END 2024-08-03 13:16 | disposition home or self-care (01) ==
LOC: MW.ED 09:36
DX: S06.0XAA Concussion with loss of consciousness status unknown, initial encounter (principal); X58.XXXA Exposure to other specified factors, initial encounter; Z88.8 Allergy status to other drugs, medicaments and biological substances; Z79.899 Other long term (current) drug therapy; Z90.49 Acquired absence of other specified parts of digestive tract
CPT/HCPCS: 36415; 70450; 71045; 80053; 81003; 83735; 84484; 85025; 93005; 96361; 96374; 96375; 99284; J1200; J1885; J2405; J7030; 93010

== ENCOUNTER 2024-10-17 20:15 | Emergency (ER) | payer OTHER ==
[2024-10-17] MEDS: Sodium Chloride 0.9% 1,000 ML IV ONE (20:36)
[2024-10-17] MEDS: Aspirin 81 MG Tab.Chew PO ONE (20:37)
[2024-10-17 20:39] LABS: BASOPHILS ABSOLUTE AUTO 0.07 K/uL (0.00-0.20); BASOPHILS PERCENT AUTO 0.9 % (0.0-1.0); EOSINOPHILS ABSOLUTE AUTO 0.19 K/uL (0.00-0.45); EOSINOPHILS PERCENT AUTO 2.6 % (0.0-6.0); HEMATOCRIT 39.8 % (42.0-52.0); HEMOGLOBIN 14.2 g/dL (14.0-18.0); IMMATURE GRAN ABSOLUTE AUTO 0.02 K/uL (0.00-0.05); IMMATURE GRAN PERCENT AUTO 0.3 % (0.0-0.4); LYMPHOCYTES ABSOLUTE AUTO 2.64 K/uL (1.00-4.80); LYMPHOCYTES PERCENT AUTO 35.7 % (24.0-44.0); MEAN CORPUSCULAR HEMOGLOBIN 31.1 pg (28.0-32.0); MEAN CORPUSCULAR HGB CONC 35.7 g/dL (32.0-36.0); MEAN CORPUSCULAR VOLUME 87.1 fL (83.0-99.0); MEAN PLATELET VOLUME 9.2 fL (9.4-12.4); MONOCYTES ABSOLUTE AUTO 0.56 K/uL (0.00-0.80); MONOCYTES PERCENT AUTO 7.6 % (0.0-8.0); NEUTROPHILS ABSOLUTE AUTO 3.92 K/uL (1.80-7.70); NEUTROPHILS PERCENT AUTO 52.9 % (41.0-71.0); PLATELET COUNT,PLT 272 K/uL (150-400); RED BLOOD CELL COUNT 4.57 M/uL (4.52-5.90)
[2024-10-17 20:49] LABS: INR 0.97 (0.86-1.11); PTT,PARTIAL THROMBOPLSTIN TIME 25.6 SEC (23.9-30.7)
[2024-10-17 20:52] LABS: D-DIMER QUANTITATIVE < 0.19 mg/L FEU (0.00-0.50)
[2024-10-17 21:09] LABS: A/G RATIO 1.8 (0.9-1.6); ALBUMIN 4.6 g/dL (3.4-5.0); BILIRUBIN TOTAL 0.4 mg/dL (0.2-1.0); CARBON DIOXIDE,CO2 31.5 mmol/L (21.0-32.0); EST CRCL DRUG DOSING (CG) 92.15 mL/min; MAGNESIUM 2.1 mg/dL (1.8-2.4); POTASSIUM,K 4.1 mmol/L (3.5-5.1); PROTEIN TOTAL,TP 7.2 g/dL (6.4-8.2); TSH ULTRASENSITIVE 0.94 uIU/mL (0.36-3.74)
[2024-10-17 21:24] LABS: APPEARANCE,URINE CLEAR; BILIRUBIN,URINE NEGATIVE (NEGATIVE); COLOR,URINE YELLOW; GLUCOSE,URINE NEGATIVE (NEGATIVE); KETONES,URINE NEGATIVE (NEGATIVE); LEUKOCYTE ESTERASE,URINE NEGATIVE (NEGATIVE); NITRITE,URINE NEGATIVE (NEGATIVE); OCCULT BLOOD,URINE NEGATIVE (NEGATIVE); PH,URINE 6.5 (5.0-8.0); PROTEIN,URINE NEGATIVE (NEGATIVE); UROBILINOGEN,URINE 0.2 EU/dL (<2.0)
[2024-10-17 21:33] LABS: AMPHETAMINES SCREEN, URINE NEGATIVE (CUTOFF=500); BARBITURATE SCREEN,URINE NEGATIVE (CUTOFF=200); BENZODIAZEPINES SCREEN,URINE NEGATIVE (CUTOFF=150); BUPRENORPHINE SCREEN,URINE NEGATIVE (CUTOFF=10); METHADONE SCREEN, URINE NEGATIVE (CUTOFF=200); METHAMPHETAMINES SCREEN, URINE NEGATIVE (CUTOFF=500); OXYCODONE SCREEN,URINE NEGATIVE (CUT0FF=100); PCP SCREEN,URINE NEGATIVE (CUTOFF=25); THC SCREEN,URINE 20 NG/ML NEGATIVE (CUTOFF=50)
[2024-10-17 21:39] LABS: CALCIUM 9.2 mg/dL (8.5-10.1)
[2024-10-17] MEDS: Iopamidol 755 MG/ML 500 ML Multipack Bottle IVPUSH ONE (22:00)
[2024-10-17 23:40] VITALS: BP 115/79; PULSE 64
== END 2024-10-17 23:39 | disposition home or self-care (01) ==
LOC: MW.ED 20:15
DX: R20.2 Paresthesia of skin (principal); K81.0 Acute cholecystitis; K83.8 Other specified diseases of biliary tract; E86.0 Dehydration; F41.9 Anxiety disorder, unspecified; R00.2 Palpitations; Z90.49 Acquired absence of other specified parts of digestive tract; Z88.8 Allergy status to other drugs, medicaments and biological substances; Z79.899 Other long term (current) drug therapy; Z75.3 Unavailability and inaccessibility of health-care facilities
CPT/HCPCS: 36415; 70450; 70496; 70498; 71045; 80053; 80305; 81003; 82947; 83690; 83735; 84443; 84484; 85025; 85379; 85610; 85730; 93005; 96360; 99284; A9270; J7030; Q9967; 93010

== ENCOUNTER 2025-02-06 15:27 | Emergency (ER) | payer OTHER ==
[2025-02-06 16:16] LABS: BASOPHILS ABSOLUTE AUTO 0.03 K/uL (0.00-0.20); BASOPHILS PERCENT AUTO 0.4 % (0.0-1.0); EOSINOPHILS ABSOLUTE AUTO 0.15 K/uL (0.00-0.45); EOSINOPHILS PERCENT AUTO 2.0 % (0.0-6.0); IMMATURE GRAN ABSOLUTE AUTO 0.02 K/uL (0.00-0.05); IMMATURE GRAN PERCENT AUTO 0.3 % (0.0-0.4); LYMPHOCYTES ABSOLUTE AUTO 2.37 K/uL (1.00-4.80); LYMPHOCYTES PERCENT AUTO 31.3 % (24.0-44.0); MEAN PLATELET VOLUME 9.2 fL (9.4-12.4); MONOCYTES ABSOLUTE AUTO 0.55 K/uL (0.00-0.80); MONOCYTES PERCENT AUTO 7.3 % (0.0-8.0); NEUTROPHILS ABSOLUTE AUTO 4.44 K/uL (1.80-7.70); NEUTROPHILS PERCENT AUTO 58.7 % (41.0-71.0); NRBC ABSOLUTE 0.00 K/uL (0.00-0.02); NRBC PERCENT 0.0 /100WBC (0.0-0.2); PLATELET COUNT,PLT 307 K/uL (150-400); RED BLOOD CELL COUNT 4.92 M/uL (4.52-5.90); WHITE BLOOD CELL COUNT,WBC 7.56 K/uL (3.9-11.3)
[2025-02-06] MEDS: LORazepam 2 MG/ML SDV IVPUSH ONE (16:18)
[2025-02-06 16:29] LABS: A/G RATIO 1.6 (0.9-1.6); ALANINE AMINOTRANSFERASE,ALT 27 IU/L (14-63); ASPARTATE AMNIOTRANSFERASE,AST 11 IU/L (15-37); BILIRUBIN TOTAL 0.3 mg/dL (0.2-1.0); BLOOD UREA NITROGEN,BUN 11 mg/dL (7.0-18.0); CARBON DIOXIDE,CO2 28.7 mmol/L (21.0-32.0); CHLORIDE,CL 103 mmol/L (98-107); CREATININE 1.1 mg/dL (0.8-1.3); EST CRCL DRUG DOSING (CG) 83.77 mL/min; ESTIMATED GFR 85 mL/min (>60); GLUCOSE RANDOM 118 mg/dL (74-106); POTASSIUM,K 3.6 mmol/L (3.5-5.1); PROTEIN TOTAL,TP 7.4 g/dL (6.4-8.2); SODIUM,NA 142 mmol/L (136-148)
[2025-02-06] MEDS: Iopamidol 755 Mg/ML 100 ML Bottle IVPUSH ONE (17:40)
[2025-02-06 19:37] VITALS: BP 129/94; PULSE 78
== END 2025-02-06 19:37 | disposition home or self-care (01) ==
LOC: MW.ED 15:27
DX: M54.50 Low back pain, unspecified (principal); Z79.899 Other long term (current) drug therapy
CPT/HCPCS: 36415; 71045; 71275; 74174; 80053; 83735; 84484; 85025; 85652; 93005; 96361; 96374; 96375; 99285; J2060; J2270; J7030; Q9967; 93010; 99284